=== PATIENT | female | born 1950 | race Caucasian/White ===

== ENCOUNTER 2019-03-13 16:58 | Inpatient (IN) | payer MEDICARE, OTHER ==
[2019-03-13 18:29] LABS: Bacteria/HPF None Seen HPF (None Seen); Hyaline Casts/LPF 0-3 HYALINE CAST LPF (0-3 Hyaline); Pathc Cast-AUWi Flag 0.27 (0-2.49); Squamous Epithelial 0-3 HPF (0-3); WBC/HPF 0-3 HPF (0-3)
[2019-03-13 18:30] LABS: Clarity Clear (Clear)
[2019-03-13 18:31] LABS: Bilirubin Negative (Negative); Blood, Urine Moderate (Negative); Glucose, Urine (Dipstick) Negative (Negative); Leukocyte Negative (Negative); Nitrite Negative (Negative); Protein, Urine (Dipstick) 30 mg/dL (Neg-Trace); Specific Gravity, Urine Greater than 1.060 (1.002-1.036); Urobilinogen 0.2 mg/dL (0.2-1.0)
[2019-03-13 18:34] LABS: Crystals/HPF None Seen HPF (Negative)
[2019-03-13] MEDS ORDERED: Acetaminophen 325 MG TAB ONE ×2 (20:19→20:21)
[2019-03-13] MEDS ORDERED: Nitroglycerin 0.4 MG TAB (25 Tab Bottle) SL PRN (21:16)
[2019-03-13] MEDS ORDERED: Senokot S 8.6-50 MG TAB PO PRN (21:16)
[2019-03-13] MEDS ORDERED: hydrALAZINE 20 MG/ML VIAL SLOW IVP PRN (21:16)
[2019-03-13] MEDS ORDERED: Acetaminophen 325 MG TAB PO PRN (21:16)
[2019-03-13] MEDS ORDERED: Benzonatate 100 MG CAP PO PRN (21:16)
[2019-03-13] MEDS ORDERED: Diabetic Tussin 200 MG/10 ML UDCUP PO PRN (21:16)
[2019-03-13] MEDS ORDERED: Ondansetron PF 4 MG/2 ML Vial IVP PRN ×2 (21:16)
[2019-03-13] MEDS ORDERED: Bisacodyl 5 MG TAB PO PRN (21:16)
[2019-03-13] MEDS ORDERED: Acetaminophen 650 MG Suppository PR PRN (21:16)
[2019-03-13] MEDS ORDERED: cloNIDine 0.1 MG TAB PO PRN (21:16)
[2019-03-13 21:26] VITALS: BMI 26.2
[2019-03-13] MEDS: Sodium Chloride 0.9% 1,000 ML IV SCH (21:49)
[2019-03-13] MEDS: Morphine 2 MG/ML SYRINGE SLOW IVP PRN (21:50)
[2019-03-13] MEDS: metroNIDAZOLE 500 MG in Premix Bag 1 BAG IVPB SCH (21:54)
--- NOTE | 2019-03-13 22:35 | CON ---
DATE OF CONSULTATION: REASON FOR CONSULT: Abdominal pain. HISTORY OF PRESENT ILLNESS: Ms. Barraza is a 68-year-old woman, who presented to a local emergency room yesterday with abdominal pain. She was not felt to have any acute process and was reassured and sent home, but the abdominal pain got worse, so she returned today and a CT was performed, which showed some gas in the mesentery of the sigmoid colon as well as some thickening of the colon concerning for colitis. She was transferred to [place] for further care. She states that she went to a [place] last weekend and was not eating well or having bowel movements due to being in a dormitory type situation. She started taking stool softeners when she got home, but became quite constipated and was having difficulty moving her bowels. On Friday, her pain got worse and on , they got even worse, so she called her doctor and was recommended to continue with laxatives. However, by Friday, it got to the point where she went to the ER. Today, she came back to the ER because she was having low-grade fevers and nausea and vomiting as well as the abdominal pain. Since receiving pain medications and antibiotics, she is feeling better. The pain has been mostly in the left lower quadrant, but extending up through the central abdomen. She has had low-grade fevers up to about 100.5 at home, but no chills. PAST MEDICAL HISTORY: Hypothyroidism, anxiety, and depression. She had some problems with chronic constipation, hypertension, and diabetes, which she states are well controlled. She did have a stroke when she was 46, which was attributed to her estrogen pill, interacting with a sinus medication. ALLERGIES: SHE HAS A SULFA ALLERGY. MEDICATIONS: The patient states she is on Synthroid medication for anxiety and depression and pills for her diabetes. She does not know the names of her medications, however. She did receive Zosyn, morphine, Toradol, and IV fluids in [place]. PAST SURGICAL HISTORY: Includes umbilical hernia repair, hysterectomy. FAMILY HISTORY: Noncontributory. She has no family history of GI malignancy. SOCIAL HISTORY: She does not smoke, drink, or use illicit drugs. LABORATORY DATA: Labs from [place] show a white count of 19, hemoglobin 14.7, hematocrit 45.4, platelets 269. She does have a left shift. Amylase and lipase are normal. Lactate is slightly elevated at 2.8. PHYSICAL EXAMINATION: VITAL SIGNS: The patient is afebrile. Heart rate 77, blood pressure 137/48, 98% saturated on room air. GENERAL: Reveals a healthy-appearing older woman, in no acute distress. She is not flushed or toxic. She is not diaphoretic. No jaundice or icterus. HEENT: Unremarkable. NECK: Supple without lymphadenopathy or thyroid nodules. HEART: Regular in its rate and rhythm without murmurs, rubs, or gallops. LUNGS: Clear to auscultation bilaterally. ABDOMEN: Soft and nondistended with healed surgical incisions. No palpable masses or hernias. She does have tenderness to palpation in the left lower quadrant, but also in the central abdomen and a little in the right greater than left upper quadrant. She does not exhibit rigidity or guarding. She has a little mild rebound. EXTREMITIES: Warm, well perfused without edema. NEURO: No focal findings. She states that her only sequela from her stroke when she was 46 is a little decrease in her balance. IMAGING: CT images are reviewed with our radiologist. She does have a fair amount of air outside the lumen of the sigmoid colon. It does appear to originate from the sigmoid colon and track up through the mesentery. There is no free intraabdominal air. It is well contained within the leaves of the mesentery. There is no drainable fluid collection. There are some inflammatory changes surrounding the sigmoid colon. No evidence of bowel obstruction. ASSESSMENT AND PLAN: Diverticulitis with contained perforation in the mesentery. I have recommended a trial of medical management, which the patient is agreeable to. If her condition worsens, then repeat imaging or surgery may be necessary. Currently, she does not have any firm indication for surgical intervention. Job ID: [id number]
[2019-03-13] MEDS ORDERED: Dextrose 5% in Water 1,000 ML IV PRN (23:09)
[2019-03-13] MEDS ORDERED: HumaLOG 300 UNITS/3 ML VIAL SC PRN ×2 (23:09)
[2019-03-13] MEDS ORDERED: Dextrose 50% Abboject 50 ML SYRINGE SLOW IVP PRN (23:09)
[2019-03-14] MEDS: HYDROcodone/Acetaminophen 5/325 mg Tablet PO PRN ×4 (00:22→18:39)
[2019-03-14] MEDS: Piperacillin/Tazobactam 3.375 GM in Sodium Chloride 0.9% 100 ML IVPB SCH ×5 (00:24→23:44)
--- NOTE | 2019-03-14 01:19 | HP ---
PRIMARY CARE PHYSICIAN: Dr. Sascha Rosario. CHIEF COMPLAINT: Abdominal pain and vomiting. HISTORY OF PRESENTING ILLNESS: Ms. Barraza is a 68-year-old female with past medical history of diverticulitis and prediabetes, who presented to the emergency room with above-mentioned complaint. History is mainly obtained by the patient herself, and electronic medical records have been reviewed. Ms. Barraza reports that she has been retreat for her tenriism for the last few days and ate without any discretion. She has had one episode of diverticulitis few years ago, when she was very sick and had to be hospitalized. She knew that she was supposed to avoid certain foods, but she ate nevertheless. She started to have left lower quadrant abdominal pain about 4 days ago, which got worse. She started to have nausea and threw up today and presented to emergency room in [place], when her symptoms did not get any better. In the emergency room at [place], a CT scan was done, which showed some free air and inflammation in the descending colon and the sigmoid area. She was given pain medications and was transferred to our facility with possible diverticulitis and perforation. Upon presentation to our emergency room, she was hemodynamically stable with a blood pressure of 142/83, temperature 99, and heart rate 85. Her temperature did go up as high as 103.1 in the emergency room. She was given Zosyn at [place] [facility] along with Zofran, Toradol, and saline. Her lab work done at [place] showed elevated lactic acid at and leukocytosis with WBCs of 20,000. Otherwise, labs were rather unremarkable. She was evaluated by Dr. Ellis, who was on-call for General Surgery and after her evaluation, it was found to have been a contained perforation with air tracking along the mesentery, but nothing outside the colon. Plan is to admit to Medicine Team with medical management with surgical consultation. The patient is quite comfortable at this time on my examination in the room. PAST MEDICAL HISTORY: 1. History of diverticulitis. 2. Prediabetes. 3. Hypothyroidism. 4. History of stroke when she was 46, which was attributed to her estrogen pill. PSYCHIATRIC HISTORY: 1. Anxiety. 2. Depression. PAST SURGICAL HISTORY: 1. Umbilical hernia repair. 2. Hysterectomy. FAMILY HISTORY: No history of colonic cancer, diabetes, coronary artery disease, or stroke. SOCIAL HISTORY: She has no history of drug, tobacco, or alcohol abuse. ALLERGIES: INCLUDE, 1. SULFONAMIDE. 2. TRIMETHOPRIM. HOME MEDICATIONS: 1. Metformin 500 mg at bedtime. 2. Provera 2.5 mg daily. 3. Bupropion XL 300 mg daily. 4. Mevacor 20 mg daily. 5. Losartan 100 mg daily. 6. Levothyroxine 175 mcg daily. 7. Estradiol 0.5 mg daily. 8. Lexapro 10 mg daily. CODE STATUS: Full code discussed with the patient. REVIEW OF SYSTEMS: A 14-point review of systems is done. It is negative except for those mentioned in the history and physical. LABORATORY DATA: Labs are not available for me to review from [place], but according to the ER physician, she had leukocytosis with WBCs of 20,000 and elevated lactic acid at . Labs will be repeated in the hospital. Urinalysis shows proteinuria and some ketones with 7 to 10 rbc's, but no leukocyte esterase or bacteria. DIAGNOSTIC DATA: CT scan per report showed diverticulitis with air tracking in the mesentery in the sigmoid colon. There was no drainable fluid collection as per Dr. Ellis. PHYSICAL EXAMINATION: VITAL SIGNS: Most recent vital signs; temperature 99.6, pulse of 89, respirations 18, saturating 92% on room air, and blood pressure 134/60. GENERAL: No acute distress. Awake, alert, and oriented x3. The patient is lying in bed under the bedsheet without any clothes because she has been sweating so much that her hospital gown is soaked through. HEENT: Mucous membrane is moist and pink. No oropharyngeal exudate or erythema. Head is normocephalic and atraumatic. Pupils are equal and reactive to light and accommodation. Extraocular movements are intact. NECK: Supple without any lymphadenopathy, JVD, or bruit. CHEST: Clear to auscultation without any wheezing, rales, or rhonchi. HEART: Rate and rhythm is regular without any murmurs, rubs, or gallops. ABDOMEN: Soft, nondistended. Abdomen is tender to deeper palpation, mainly in the left lower quadrant. Bowel sounds are not very easily heard. No rebound, guarding, or rigidity. It is not acute abdomen. EXTREMITIES: Free of any cyanosis, clubbing, or edema. NEUROLOGICAL: Nonfocal. SKIN: Free of any rashes or bruises. Feels warm and dry to touch. PSYCHIATRIC: Normal affect. IMPRESSION AND PLAN: 1. Acute diverticulitis with contained perforation in the mesentery. The patient will be treated conservatively with bowel rest, normal saline, and empiric IV antibiotics. General Surgery, Dr. Ellis has already evaluated the patient and will be consulted as well. For now, conservative management is recommended by Surgery Team. She is hemodynamically stable. Monitor clinically. 2. Abdominal pain secondary to #1. Continue the plan as #1. We will add the GI prophylaxis with IV Pepcid b.i.d. 3. Fever, most likely secondary to abdominal process with diverticulitis. We will obtain urine culture and blood culture and continue empiric antibiotic for now. 4. History of anxiety and depression. Restart her Wellbutrin XL at 300 mg daily and Lexapro 10 mg daily. 5. Hypothyroidism. Restart Synthroid 175 mcg daily. 6. History of hypertension. We will restart Cozaar 100 mg daily. 7. Diabetes mellitus, non-insulin dependent. We will hold the metformin for now as the patient is n.p.o. and start her insulin sliding scale with Accu-Cheks a.c. and at bedtime. 8. Dyslipidemia. Restart her statin. 9. Deep venous thrombosis and gastrointestinal prophylaxis. DISPOSITION: Ms. Barraza is currently being admitted to the hospital for diverticulitis with contained perforation. She is hemodynamically stable. No evidence of sepsis at this time. Estimated length of stay at this time is at least 2 to 3 midnights. Further management will depend upon her clinical course. Job ID: [id number]
[2019-03-14] MEDS: Morphine 2 MG/ML SYRINGE SLOW IVP PRN ×3 (02:43→19:50)
[2019-03-14] MEDS: metroNIDAZOLE 500 MG in Premix Bag 1 BAG IVPB SCH ×3 (06:00→22:24)
[2019-03-14] MEDS: Levothyroxine 175 MCG TAB PO SCH (06:02)
[2019-03-14 06:27] LABS: #Lymphocytes 1.4 thou/uL (1.20-3.40); #Monocytes 0.8 thou/uL (0.11-0.59); #Neutrophils 15.6 thou/uL (1.40-6.50); %Basophils 0.1 % (0.0-1.0); %Eosinophils 0.1 % (0.0-10.0); %Monocytes 4.4 % (0.0-10.0); %Neutrophils 87.4 % (42.0-75.0); Hemoglobin 13.2 g/dL (12.0-16.0); Mean Corpuscular HGB CONC 32.8 g/dL (32.0-36.0); Mean Corpuscular Hemoglobin 31.3 pg (27.0-31.0); Mean Corpuscular Volume 95.3 fL (78.0-98.0); Mean Platelet Volume 9.9 fL (7.4-10.4); Platelet Count 195 thou/uL (130-400); RBC Distribution Width 12.1 % (11.5-14.5); Red Blood Cell (RBC) Count 4.21 mill/uL (4.20-5.40); White Blood Cell (WBC) Count 17.9 thou/uL (4.8-10.8)
[2019-03-14 06:41] LABS: Anion Gap 12 mmol/L (10-20); BUN (Urea Nitrogen) 9 mg/dL (9.8-20.1); Calc. Creatinine Clearance 86 mL/min (70-130); Calcium 8.1 mg/dL (7.8-10.44); Carbon Dioxide 25 mmol/L (23-31); Chloride 103 mmol/L (98-107); Estimated GFR-MDRD 76; Glucose 125 mg/dL (80-115); Potassium 3.6 mmol/L (3.5-5.1); Sodium 136 mmol/L (136-145)
[2019-03-14] MEDS: Bupropion 150 MG XL TAB PO SCH (08:50)
[2019-03-14] MEDS: Escitalopram Oxalate 10 mg Tablet PO SCH (08:50)
[2019-03-14] MEDS: Enoxaparin Sodium 40 MG/0.4 ML SYRINGE SC SCH (08:51)
[2019-03-14] MEDS: Famotidine/PF 20 mg/2ml Vial SLOW IVP SCH ×2 (08:51→19:50)
[2019-03-14] MEDS: Sodium Chloride 0.9% 1,000 ML IV SCH ×3 (08:54→23:47)
[2019-03-14] MEDS ORDERED: Ciprofloxacin Lactate/D5W 200 MG in Premix Bag 1 BAG IVPB SCH (09:00)
--- NOTE | 2019-03-14 12:34 | PDOC.PN ---
- Subjective Encounter Start Date: 03/14/19 Encounter Start Time: 08:45 Subjective: still has abd pain but gets relief from morphine -: no nausea or vomiting now -: is passing flatus, no bm - Objective Resuscitation Status - Order Detail: 03/14/19 00:03 Resuscitation Status Routine Resuscitation Status: FULL: Full Resuscitation Discussed with: discussed w pt MAR Reviewed: Yes Vital Signs & Weight: Vital Signs (12 hours) Temp Pulse Resp BP Pulse Ox 03/14/19 11:46 98.7 F 77 16 111/63 92 L 03/14/19 08:00 90 L 03/14/19 07:49 98.8 F 83 16 107/53 L 90 L 03/14/19 05:15 98.4 F 86 18 104/56 L 92 L Weight Weight 172 lb 4.8 oz I&O: 03/13/19 03/14/19 03/15/19 06:59 06:59 06:59 Intake Total 949 Balance 949 Result Diagrams: 03/14/19 06:02 03/14/19 06:02 Additional Labs: Accuchecks 03/14/19 03/14/19 11:26 05:15 POC Glucose 130 H 127 H Phys Exam - Physical Examination HEENT: PERRLA, sclera anicteric dry mucosa Neck: no JVD, supple Respiratory: no wheezing, no rales Cardiovascular: RRR, no significant murmur Gastrointestinal: soft, no distention, positive bowel sounds tenderness in suprapubic area and left iliac fossa Musculoskeletal: no edema, pulses present Neurological: non-focal, moves all 4 limbs Psychiatric: normal affect, A&O x 3 Dx/Plan (1) Perforation of sigmoid colon due to diverticulitis Code(s): K57.20 - DVTRCLI OF LG INT W PERFORATION AND ABSCESS W/O BLEEDING Status: Acute Comment: contained perf in the mesentery (2) DM type 2 (diabetes mellitus, type 2) Status: Chronic Qualifiers: Diabetes mellitus terminal system operator insulin use: without assisted use Diabetes mellitus complication status: with unspecified complications Qualified Code(s) : E11.8 - Type 2 diabetes mellitus with unspecified complications (3) Hypothyroidism Code(s): E03.9 - HYPOTHYROIDISM, UNSPECIFIED Status: Chronic (4) HTN (hypertension) Code(s): I10 - ESSENTIAL (PRIMARY) HYPERTENSION Status: Chronic Qualifiers: Hypertension type: essential hypertension Qualified Code(s): I10 - Essential (primary) hypertension (5) Dyslipidemia Code(s): E78.5 - HYPERLIPIDEMIA, UNSPECIFIED Status: Chronic (6) Mood disorder Code(s): F39 - UNSPECIFIED MOOD [AFFECTIVE] DISORDER Status: Chronic - Plan is on zosyn and flagyl, iv fluids, npo -: hold all antihtn meds -: continue welbutryn and synthroid for now -: morphine prn, appreciate 's help -: may switch fluids to lactated ringers in am * . Review of Systems - Medications/Allergies Allergies/Adverse Reactions: Allergies Allergy/AdvReac Type Severity Reaction Status Date / Time Sulfa (Sulfonamide Allergy Severe Verified 03/13/19 21:23 Antibiotics) sulfamethoxazole Allergy Severe Verified 03/13/19 21:23 [From Bactrim] trimethoprim [From Bactrim] Allergy Severe Verified 03/13/19 21:23 Medications: Current Medications Acetaminophen (Tylenol) 650 mg OH Q4H PRN PRN Reason: Headache/Fever/Mild Pain (1-3) Acetaminophen (Tylenol) 650 mg PO Q4H PRN PRN Reason: Headache/Fever/Mild Pain (1-3) Hydrocodone Bitart/Acetaminophen ([place] 5/325) 1 tab PO Q4H PRN PRN Reason: Moderate Pain (4-6) Last Admin: 03/14/19 05:09 Dose: 1 tab Hydrocodone Bitart/Acetaminophen ([place] 5/325) 2 tab PO Q4H PRN PRN Reason: Severe Pain (7-10) Last Admin: 03/14/19 08:47 Dose: 2 tab Benzonatate (Tessalon) 100 mg PO Q6H PRN PRN Reason: Cough Bisacodyl (Dulcolax) 10 mg PO DAILYPRN PRN PRN Reason: Constipation Bupropion HCl (Wellbutrin Xl) 300 mg PO DAILY YUE Last Admin: 03/14/19 08:50 Dose: 300 mg Calcium Carbonate (Tums) 1,000 mg PO Q4H PRN PRN Reason: Heartburn or Indigestion Clonidine (Catapres) 0.1 mg PO Q4H PRN PRN Reason: SBP >160 ____ Dextrose/Water (Dextrose 50%) 25 gm SLOW IVP PRN PRN PRN Reason: Hypoglycemia Enoxaparin Sodium (Lovenox) 40 mg SC 0900 [facility] Last Admin: 03/14/19 08:51 Dose: 40 mg Escitalopram Oxalate (Lexapro) 10 mg PO DAILY [facility] Last Admin: 03/14/19 08:50 Dose: 10 mg Famotidine (Pepcid) 20 mg SLOW IVP Q12HR [facility] Last Admin: 03/14/19 08:51 Dose: 20 mg Glucagon (Glucagon) 1 mg IM PRN PRN PRN Reason: Hypoglycemia Guaifenesin (Robitussin Sf) 200 mg PO Q4H PRN PRN Reason: Cough Hydralazine HCl (Apresoline) 10 mg SLOW IVP Q4H PRN PRN Reason: SBP > 180 and HR < 70 Metronidazole 500 mg/ Device 100 mls @ 100 mls/hr IVPB Q8HR [facility] Last Admin: 03/14/19 06:00 Dose: 100 mls Sodium Chloride (Normal Saline 0.9%) 1,000 mls @ 100 mls/hr IV .Q10H [facility] Last Admin: 03/14/19 08:54 Dose: 1,000 mls Piperacillin Sod/Tazobactam (Sod 3.375 gm/ Sodium Chloride) 100 mls @ 200 mls/ hr IVPB Q6HR [facility] Last Admin: 03/14/19 12:19 Dose: 100 mls Dextrose/Water (D5w) 1,000 mls @ 0 mls/hr IV .Q0M PRN PRN Reason: Hypoglycemia Insulin Human Lispro (Humalog) 0 units SC .MODERATE SLIDING SC PRN PRN Reason: Moderate Correctional Scale Insulin Human Lispro (Humalog) 0 units SC .BEDTIME SLIDING SC PRN PRN Reason: Bedtime Correctional Scale Levothyroxine Sodium (Synthroid) 175 mcg PO 0600 [facility] Last Admin: 03/14/19 06:02 Dose: Not Given Losartan Potassium (Cozaar) 100 mg PO QPM [facility] Morphine Sulfate (Morphine) 2 mg SLOW IVP Q4H PRN PRN Reason: severe pain Last Admin: 03/14/19 10:22 Dose: 2 mg Nitroglycerin (Nitrostat) 0.4 mg SL Q5MIN PRN PRN Reason: Chest Pain Ondansetron HCl (Zofran) 4 mg IVP Q6H PRN PRN Reason: Nausea/Vomiting Ondansetron HCl (Zofran) 4 mg IVP Q6H PRN PRN Reason: Nausea/Vomiting Senna/Docusate Sodium (Senokot S) 2 tab PO BID PRN PRN Reason: Constipation Simvastatin (Zocor) 10 mg PO HS YUE Sodium Chloride (Flush - Normal Saline) 10 ml IVF Q12HR YUE Last Admin: 03/14/19 09:46 Dose: Not Given Sodium Chloride (Flush - Normal Saline) 10 ml IVF PRN PRN PRN Reason: Saline Flush Last Admin: 03/13/19 21:50 Dose: 10 ml
--- NOTE | 2019-03-14 15:40 | PDOC.GSPN ---
Surgery Progress Note: Subj - Subjective Narrative: Patient states that the morphine helps with the pain but that overall she feels about the same as yesterday. She denies any nausea or vomiting. She is passing gas. Abdomen is still slightly distended and tender in the left lower quadrant and centrally. White count is down a little bit to 17. She has not had any fevers overnight. Assessment/plan: Diverticulitis with contained perforation. Slight improvements on IV antibiotics. Continue current management and monitor closely. Surgery Progress Note: Obj - Vital signs Vital signs: Vital Signs - Most Recent Temp Pulse Resp BP Pulse Ox 98.7 F 77 16 111/63 92 L 03/14/19 11:46 03/14/19 11:46 03/14/19 11:46 03/14/19 11:46 03/14/19 11:46 Surgery Progress Note: Results - Labs Result Diagrams: 03/14/19 06:02 03/14/19 06:02 Lab results: Laboratory Results - last 24 hr 03/14/19 03/14/19 03/14/19 05:15 06:02 06:02 WBC 17.9 H RBC 4.21 Hgb 13.2 Hct 40.1 MCV 95.3 MCH 31.3 H MCHC 32.8 RDW 12.1 Plt Count 195 MPV 9.9 Neutrophils % 87.4 H Lymphocytes % 8.0 L Monocytes % 4.4 Eosinophils % 0.1 Basophils % 0.1 Neutrophils # 15.6 H Lymphocytes # 1.4 Monocytes # 0.8 H Eosinophils # 0.0 Basophils # 0.0 Sodium 136 Potassium 3.6 Chloride 103 Carbon Dioxide 25 Anion Gap 12 BUN 9 L Creatinine 0.75 Estimated GFR (MDRD) 76 Glucose 125 H POC Glucose 127 H Calcium 8.1 03/14/19 11:26 WBC RBC Hgb Hct MCV MCH MCHC RDW Plt Count MPV Neutrophils % Lymphocytes % Monocytes % Eosinophils % Basophils % Neutrophils # Lymphocytes # Monocytes # Eosinophils # Basophils # Sodium Potassium Chloride Carbon Dioxide Anion Gap BUN Creatinine Estimated GFR (MDRD) Glucose POC Glucose 130 H Calcium
[2019-03-14] MEDS ORDERED: Losartan 25 MG TAB PO SCH (21:00)
[2019-03-14] MEDS ORDERED: Simvastatin 5 MG TAB PO SCH (21:00)
[2019-03-15] MEDS: metroNIDAZOLE 500 MG in Premix Bag 1 BAG IVPB SCH ×3 (05:17→20:44)
[2019-03-15] MEDS: Piperacillin/Tazobactam 3.375 GM in Sodium Chloride 0.9% 100 ML IVPB SCH ×3 (05:18→17:38)
[2019-03-15] MEDS: Levothyroxine 175 MCG TAB PO SCH (05:23)
[2019-03-15] MEDS: Morphine 2 MG/ML SYRINGE SLOW IVP PRN ×3 (05:23→20:40)
[2019-03-15] MEDS: Famotidine/PF 20 mg/2ml Vial SLOW IVP SCH ×2 (08:12→20:46)
[2019-03-15] MEDS: Bupropion 150 MG XL TAB PO SCH (08:12)
[2019-03-15] MEDS: Enoxaparin Sodium 40 MG/0.4 ML SYRINGE SC SCH (08:13)
[2019-03-15] MEDS: Escitalopram Oxalate 10 mg Tablet PO SCH (08:13)
[2019-03-15] MEDS: Calcium Carbonate 500 MG ChewTAB PO PRN (09:28)
[2019-03-15 11:39] LABS: #Lymphocytes 0.9 thou/uL (1.20-3.40); #Monocytes 0.9 thou/uL (0.11-0.59); #Neutrophils 16.2 thou/uL (1.40-6.50); %Basophils 0.2 % (0.0-1.0); %Eosinophils 0.2 % (0.0-10.0); %Lymphocytes 4.8 % (21.0-51.0); %Monocytes 4.9 % (0.0-10.0); Hemoglobin 12.1 g/dL (12.0-16.0); Mean Corpuscular HGB CONC 32.4 g/dL (32.0-36.0); Mean Corpuscular Hemoglobin 31.2 pg (27.0-31.0); Mean Corpuscular Volume 96.2 fL (78.0-98.0); Mean Platelet Volume 10.2 fL (7.4-10.4); Platelet Count 197 thou/uL (130-400); RBC Distribution Width 12.4 % (11.5-14.5); Red Blood Cell (RBC) Count 3.89 mill/uL (4.20-5.40)
[2019-03-15 12:43] LABS: Anion Gap 11 mmol/L (10-20); BUN (Urea Nitrogen) 14 mg/dL (9.8-20.1); Calc. Creatinine Clearance 95 mL/min (70-130); Calcium 8.2 mg/dL (7.8-10.44); Carbon Dioxide 24 mmol/L (23-31); Chloride 110 mmol/L (98-107); Estimated GFR-MDRD 86; Glucose 122 mg/dL (80-115); Potassium 3.2 mmol/L (3.5-5.1); Sodium 142 mmol/L (136-145)
[2019-03-15] MEDS: Sodium Chloride 0.9% 1,000 ML IV SCH ×2 (14:35→20:46)
--- NOTE | 2019-03-15 14:55 | PDOC.GSPN ---
Surgery Progress Note: Subj - Subjective Narrative: Patient is feeling better today. Her pain has improved and she is passing gas. She denies any nausea or vomiting and does not feel bloated. She is tolerating ice chips. No fever. Vital signs okay. White count is still elevated. Abdominal exam is improved. She is much less tender to palpation in the left lower quadrant and central abdomen. Assessment/plan: Symptomatically improved with diverticulitis with contained perforation, although white count has not normalized. Continue current management. If white count remains elevated consider repeat CT. Clear Liquid diet. Surgery Progress Note: Obj - Vital signs Vital signs: Vital Signs - Most Recent Temp Pulse Resp BP Pulse Ox 98.3 F 78 20 126/69 91 L 03/15/19 03:31 03/15/19 03:31 03/15/19 03:31 03/15/19 03:03/15/19 08:00 Surgery Progress Note: Results - Labs Result Diagrams: 03/15/19 11:25 03/15/19 12:10 Lab results: Laboratory Results - last 24 hr 03/15/19 03/15/19 03/15/19 05:52 11:25 11:47 WBC 18.0 H RBC 3.89 L Hgb 12.1 Hct 37.4 MCV 96.2 MCH 31.2 H MCHC 32.4 RDW 12.4 Plt Count 197 MPV 10.2 Neutrophils % 90.0 H Lymphocytes % 4.8 L Monocytes % 4.9 Eosinophils % 0.2 Basophils % 0.2 Neutrophils # 16.2 H Lymphocytes # 0.9 L Monocytes # 0.9 H Eosinophils # 0.0 Basophils # 0.0 Sodium Potassium Chloride Carbon Dioxide Anion Gap BUN Creatinine Estimated GFR (MDRD) Glucose POC Glucose 123 H 109 Calcium 03/15/19 12:10 WBC RBC Hgb Hct MCV MCH MCHC RDW Plt Count MPV Neutrophils % Lymphocytes % Monocytes % Eosinophils % Basophils % Neutrophils # Lymphocytes # Monocytes # Eosinophils # Basophils # Sodium 142 Potassium 3.2 L Chloride 110 H Carbon Dioxide 24 Anion Gap 11 BUN 14 Creatinine 0.68 Estimated GFR (MDRD) 86 Glucose 122 H POC Glucose Calcium 8.2
--- NOTE | 2019-03-15 17:10 | PDOC.PN ---
- Subjective Encounter Start Date: 03/15/19 Encounter Start Time: 12:30 Subjective: c/o abd pain but gets relief with meds -: no nausea or bm yet -: son at bedside - Objective Resuscitation Status - Order Detail: 03/14/19 00:03 Resuscitation Status Routine Resuscitation Status: FULL: Full Resuscitation Discussed with: discussed w pt MAR Reviewed: Yes Vital Signs & Weight: Vital Signs (12 hours) Temp Pulse Resp BP Pulse Ox 03/15/19 12:00 97.7 F 80 16 133/69 92 L 03/15/19 08:00 98.4 F 79 16 123/65 91 L Weight Admit Weight 172 lb 4.8 oz Weight 172 lb 4.8 oz I&O: 03/14/19 03/15/19 03/16/19 06:59 06:59 06:59 Intake Total 949 1200 Balance 949 1200 Result Diagrams: 03/15/19 11:25 03/15/19 12:10 Additional Labs: Accuchecks 03/15/19 03/15/19 03/14/19 11:47 05:52 20:25 POC Glucose 109 123 H 127 H 03/14/19 16:49 POC Glucose 116 H Phys Exam - Physical Examination HEENT: PERRLA, moist MMs Neck: no JVD, supple Respiratory: no wheezing, no rales Cardiovascular: RRR, no significant murmur Gastrointestinal: soft, no distention, positive bowel sounds tenderness in rlq, no rigidity Musculoskeletal: no edema, pulses present Neurological: non-focal, moves all 4 limbs Psychiatric: normal affect, A&O x 3 Dx/Plan (1) Perforation of sigmoid colon due to diverticulitis Code(s): K57.20 - DVTRCLI OF LG INT W PERFORATION AND ABSCESS W/O BLEEDING Status: Acute Comment: contained perf in the mesentery (2) DM type 2 (diabetes mellitus, type 2) Status: Chronic Qualifiers: Diabetes mellitus life skills instructor insulin use: without senior care use Diabetes mellitus complication status: with unspecified complications Qualified Code(s) : E11.8 - Type 2 diabetes mellitus with unspecified complications (3) Hypothyroidism Code(s): E03.9 - HYPOTHYROIDISM, UNSPECIFIED Status: Chronic Qualifiers: Hypothyroidism type: unspecified Qualified Code(s): E03.9 - Hypothyroidism , unspecified (4) HTN (hypertension) Code(s): I10 - ESSENTIAL (PRIMARY) HYPERTENSION Status: Chronic Qualifiers: Hypertension type: essential hypertension Qualified Code(s): I10 - Essential (primary) hypertension (5) Dyslipidemia Code(s): E78.5 - HYPERLIPIDEMIA, UNSPECIFIED Status: Chronic (6) Mood disorder Code(s): F39 - UNSPECIFIED MOOD [AFFECTIVE] DISORDER Status: Chronic - Plan hemostable -: wbc still elevated, clinically no signs of worsoning -: suggest CT abd in am if ok with gen surgery -: her pain has moved from llq to rlq, is tolerating ice chips -: d/w pt and son at bedside. Continue zosyn, flagyl * . Review of Systems - Medications/Allergies Allergies/Adverse Reactions: Allergies Allergy/AdvReac Type Severity Reaction Status Date / Time Sulfa (Sulfonamide Allergy Severe Verified 03/13/19 21:23 Antibiotics) sulfamethoxazole Allergy Severe Verified 03/13/19 21:23 [From Bactrim] trimethoprim [From Bactrim] Allergy Severe Verified 03/13/19 21:23 Medications: Current Medications Acetaminophen (Tylenol) 650 mg [place] Q4H PRN PRN Reason: Headache/Fever/Mild Pain (1-3) Acetaminophen (Tylenol) 650 mg PO Q4H PRN PRN Reason: Headache/Fever/Mild Pain (1-3) Hydrocodone Bitart/Acetaminophen ([place] 5/325) 1 tab PO Q4H PRN PRN Reason: Moderate Pain (4-6) Last Admin: 03/14/19 05:09 Dose: 1 tab Hydrocodone Bitart/Acetaminophen ([place] 5/325) 2 tab PO Q4H PRN PRN Reason: Severe Pain (7-10) Last Admin: 03/14/19 18:39 Dose: 2 tab Benzonatate (Tessalon) 100 mg PO Q6H PRN PRN Reason: Cough Bisacodyl (Dulcolax) 10 mg PO DAILYPRN PRN PRN Reason: Constipation Bupropion HCl (Wellbutrin Xl) 300 mg PO DAILY YUE Last Admin: 03/15/19 08:12 Dose: 300 mg Calcium Carbonate (Tums) 1,000 mg PO Q4H PRN PRN Reason: Heartburn or Indigestion Last Admin: 03/15/19 09:28 Dose: 1,000 mg Clonidine (Catapres) 0.1 mg PO Q4H PRN PRN Reason: SBP >160 ____ Dextrose/Water (Dextrose 50%) 25 gm SLOW IVP PRN PRN PRN Reason: Hypoglycemia Enoxaparin Sodium (Lovenox) 40 mg SC 0900 [facility] Last Admin: 03/15/19 08:13 Dose: 40 mg Escitalopram Oxalate (Lexapro) 10 mg PO DAILY [facility] Last Admin: 03/15/19 08:13 Dose: 10 mg Famotidine (Pepcid) 20 mg SLOW IVP Q12HR [facility] Last Admin: 03/15/19 08:12 Dose: 20 mg Glucagon (Glucagon) 1 mg IM PRN PRN PRN Reason: Hypoglycemia Guaifenesin (Robitussin Sf) 200 mg PO Q4H PRN PRN Reason: Cough Hydralazine HCl (Apresoline) 10 mg SLOW IVP Q4H PRN PRN Reason: SBP > 180 and HR < 70 Metronidazole 500 mg/ Device 100 mls @ 100 mls/hr IVPB Q8HR [facility] Last Admin: 03/15/19 14:35 Dose: 100 mls Sodium Chloride (Normal Saline 0.9%) 1,000 mls @ 100 mls/hr IV .Q10H [facility] Last Admin: 03/15/19 14:35 Dose: 1,000 mls Piperacillin Sod/Tazobactam (Sod 3.375 gm/ Sodium Chloride) 100 mls @ 200 mls/ hr IVPB Q6HR [facility] Last Admin: 03/15/19 11:10 Dose: 100 mls Dextrose/Water (D5w) 1,000 mls @ 0 mls/hr IV .Q0M PRN PRN Reason: Hypoglycemia Insulin Human Lispro (Humalog) 0 units SC .MODERATE SLIDING SC PRN PRN Reason: Moderate Correctional Scale Insulin Human Lispro (Humalog) 0 units SC .BEDTIME SLIDING SC PRN PRN Reason: Bedtime Correctional Scale Levothyroxine Sodium (Synthroid) 175 mcg PO 0600 [facility] Last Admin: 03/15/19 05:23 Dose: 175 mcg Morphine Sulfate (Morphine) 2 mg SLOW IVP Q4H PRN PRN Reason: severe pain Last Admin: 03/15/19 11:07 Dose: 2 mg Nitroglycerin (Nitrostat) 0.4 mg SL Q5MIN PRN PRN Reason: Chest Pain Ondansetron HCl (Zofran) 4 mg IVP Q6H PRN PRN Reason: Nausea/Vomiting Ondansetron HCl (Zofran) 4 mg IVP Q6H PRN PRN Reason: Nausea/Vomiting Senna/Docusate Sodium (Senokot S) 2 tab PO BID PRN PRN Reason: Constipation Sodium Chloride (Flush - Normal Saline) 10 ml IVF Q12HR [facility] Last Admin: 03/15/19 08:13 Dose: Not Given Sodium Chloride (Flush - Normal Saline) 10 ml IVF PRN PRN PRN Reason: Saline Flush Last Admin: 03/13/19 21:50 Dose: 10 ml
[2019-03-16] MEDS: Piperacillin/Tazobactam 3.375 GM in Sodium Chloride 0.9% 100 ML IVPB SCH ×5 (00:22→23:37)
[2019-03-16] MEDS: Morphine 2 MG/ML SYRINGE SLOW IVP PRN ×4 (00:44→21:02)
[2019-03-16] MEDS: Levothyroxine 175 MCG TAB PO SCH (05:25)
[2019-03-16] MEDS: metroNIDAZOLE 500 MG in Premix Bag 1 BAG IVPB SCH ×3 (05:26→21:03)
[2019-03-16 06:37] LABS: #Lymphocytes 1.3 thou/uL (1.20-3.40); #Monocytes 0.8 thou/uL (0.11-0.59); #Neutrophils 12.5 thou/uL (1.40-6.50); %Basophils 0.2 % (0.0-1.0); %Eosinophils 0.1 % (0.0-10.0); %Lymphocytes 8.6 % (21.0-51.0); %Monocytes 5.7 % (0.0-10.0); %Neutrophils 85.4 % (42.0-75.0); Hemoglobin 12.3 g/dL (12.0-16.0); Mean Corpuscular HGB CONC 32.7 g/dL (32.0-36.0); Mean Corpuscular Hemoglobin 31.5 pg (27.0-31.0); Mean Corpuscular Volume 96.2 fL (78.0-98.0); Mean Platelet Volume 10.3 fL (7.4-10.4); Platelet Count 232 thou/uL (130-400); RBC Distribution Width 12.4 % (11.5-14.5); Red Blood Cell (RBC) Count 3.92 mill/uL (4.20-5.40); White Blood Cell (WBC) Count 14.6 thou/uL (4.8-10.8)
[2019-03-16 06:54] LABS: Anion Gap 10 mmol/L (10-20); BUN (Urea Nitrogen) 8 mg/dL (9.8-20.1); Calc. Creatinine Clearance 111 mL/min (70-130); Calcium 7.9 mg/dL (7.8-10.44); Carbon Dioxide 24 mmol/L (23-31); Chloride 108 mmol/L (98-107); Estimated GFR-MDRD Greater than 90; Glucose 128 mg/dL (80-115); Potassium 3.1 mmol/L (3.5-5.1); Sodium 139 mmol/L (136-145)
[2019-03-16] MEDS: Escitalopram Oxalate 10 mg Tablet PO SCH (08:44)
[2019-03-16] MEDS: HYDROcodone/Acetaminophen 5/325 mg Tablet PO PRN ×2 (08:44→23:38)
[2019-03-16] MEDS: Bupropion 150 MG XL TAB PO SCH (08:44)
[2019-03-16] MEDS: Enoxaparin Sodium 40 MG/0.4 ML SYRINGE SC SCH (08:45)
[2019-03-16] MEDS: Sodium Chloride 0.9% 1,000 ML IV SCH ×2 (08:45→19:41)
[2019-03-16] MEDS: Famotidine/PF 20 mg/2ml Vial SLOW IVP SCH ×2 (08:45→19:42)
[2019-03-16] MEDS ORDERED: ISOVUE-370 76%-LOCM 1 ML ONE (13:05)
[2019-03-16] MEDS ORDERED: Iopamidol 370 76% 50 ML VIAL FS ONE (13:05)
--- NOTE | 2019-03-16 15:45 | PDOC.PN ---
- Subjective Encounter Start Date: 03/16/19 Encounter Start Time: 08:45 Subjective: abd pain is better, no nausea -: is passing flatus, no bm - Objective Resuscitation Status - Order Detail: 03/14/19 00:03 Resuscitation Status Routine Resuscitation Status: FULL: Full Resuscitation Discussed with: discussed w pt MAR Reviewed: Yes Vital Signs & Weight: Vital Signs (12 hours) Temp Pulse Resp BP BP Pulse Ox 03/16/19 08:00 98.3 F 84 20 132/71 94 L 03/16/19 04:00 98.9 F 85 20 125/72 93 L Weight Admit Weight 172 lb 4.8 oz Weight 172 lb 4.8 oz I&O: 03/15/19 03/16/19 03/17/19 06:59 06:59 06:59 Intake Total 1200 1450 480 Balance 1200 1450 480 Result Diagrams: 03/16/19 05:42 03/16/19 05:42 Additional Labs: Accuchecks 03/16/19 03/16/19 03/15/19 11:10 04:38 20:15 POC Glucose 123 H 147 H 160 H 03/15/19 17:07 POC Glucose 180 H Phys Exam - Physical Examination HEENT: PERRLA, moist MMs Neck: no JVD, supple Respiratory: no wheezing, no rales Cardiovascular: RRR, no significant murmur Gastrointestinal: soft, no distention, positive bowel sounds Musculoskeletal: no edema, pulses present Neurological: non-focal, moves all 4 limbs Psychiatric: normal affect, A&O x 3 Dx/Plan (1) Perforation of sigmoid colon due to diverticulitis Code(s): K57.20 - DVTRCLI OF LG INT W PERFORATION AND ABSCESS W/O BLEEDING Status: Acute Comment: contained perf in the mesentery (2) DM type 2 (diabetes mellitus, type 2) Status: Chronic Qualifiers: Diabetes mellitus pecan grower insulin use: without pecan grower use Diabetes mellitus complication status: with unspecified complications Qualified Code(s) : E11.8 - Type 2 diabetes mellitus with unspecified complications (3) Hypothyroidism Code(s): E03.9 - HYPOTHYROIDISM, UNSPECIFIED Status: Chronic Qualifiers: Hypothyroidism type: unspecified Qualified Code(s): E03.9 - Hypothyroidism , unspecified (4) HTN (hypertension) Code(s): I10 - ESSENTIAL (PRIMARY) HYPERTENSION Status: Chronic Qualifiers: Hypertension type: essential hypertension Qualified Code(s): I10 - Essential (primary) hypertension (5) Dyslipidemia Code(s): E78.5 - HYPERLIPIDEMIA, UNSPECIFIED Status: Chronic (6) Mood disorder Code(s): F39 - UNSPECIFIED MOOD [AFFECTIVE] DISORDER Status: Chronic - Plan pt wants a repeat CT abd to see if she has improved/decompensated -: clinically is better, wbc is down, morphine is giving good relief -: is on zosyn and flaygl -: on liq diet -: replace potassium * . Review of Systems - Medications/Allergies Allergies/Adverse Reactions: Allergies Allergy/AdvReac Type Severity Reaction Status Date / Time Sulfa (Sulfonamide Allergy Severe Verified 03/13/19 21:23 Antibiotics) sulfamethoxazole Allergy Severe Verified 03/13/19 21:23 [From Bactrim] trimethoprim [From Bactrim] Allergy Severe Verified 03/13/19 21:23 Medications: Current Medications Acetaminophen (Tylenol) 650 mg [place] Q4H PRN PRN Reason: Headache/Fever/Mild Pain (1-3) Acetaminophen (Tylenol) 650 mg PO Q4H PRN PRN Reason: Headache/Fever/Mild Pain (1-3) Last Admin: 03/15/19 18:43 Dose: 650 mg Hydrocodone Bitart/Acetaminophen ([place] 5/325) 1 tab PO Q4H PRN PRN Reason: Moderate Pain (4-6) Last Admin: 03/16/19 08:44 Dose: 1 tab Hydrocodone Bitart/Acetaminophen ([place] 5/325) 2 tab PO Q4H PRN PRN Reason: Severe Pain (7-10) Last Admin: 03/14/19 18:39 Dose: 2 tab Benzonatate (Tessalon) 100 mg PO Q6H PRN PRN Reason: Cough Bisacodyl (Dulcolax) 10 mg PO DAILYPRN PRN PRN Reason: Constipation Last Admin: 03/15/19 17:44 Dose: 10 mg Bupropion HCl (Wellbutrin Xl) 300 mg PO DAILY YUE Last Admin: 03/16/19 08:44 Dose: 300 mg Calcium Carbonate (Tums) 1,000 mg PO Q4H PRN PRN Reason: Heartburn or Indigestion Last Admin: 03/15/19 09:28 Dose: 1,000 mg Clonidine (Catapres) 0.1 mg PO Q4H PRN PRN Reason: SBP >160 ____ Dextrose/Water (Dextrose 50%) 25 gm SLOW IVP PRN PRN PRN Reason: Hypoglycemia Enoxaparin Sodium (Lovenox) 40 mg SC 0900 [facility] Last Admin: 03/16/19 08:45 Dose: 40 mg Escitalopram Oxalate (Lexapro) 10 mg PO DAILY [facility] Last Admin: 03/16/19 08:44 Dose: 10 mg Famotidine (Pepcid) 20 mg SLOW IVP Q12HR [facility] Last Admin: 03/16/19 08:45 Dose: 20 mg Glucagon (Glucagon) 1 mg IM PRN PRN PRN Reason: Hypoglycemia Guaifenesin (Robitussin Sf) 200 mg PO Q4H PRN PRN Reason: Cough Hydralazine HCl (Apresoline) 10 mg SLOW IVP Q4H PRN PRN Reason: SBP > 180 and HR < 70 Metronidazole 500 mg/ Device 100 mls @ 100 mls/hr IVPB Q8HR [facility] Last Admin: 03/16/19 13:48 Dose: 100 mls Sodium Chloride (Normal Saline 0.9%) 1,000 mls @ 100 mls/hr IV .Q10H [facility] Last Admin: 03/16/19 08:45 Dose: Not Given Piperacillin Sod/Tazobactam (Sod 3.375 gm/ Sodium Chloride) 100 mls @ 200 mls/ hr IVPB Q6HR [facility] Last Admin: 03/16/19 11:39 Dose: 100 mls Dextrose/Water (D5w) 1,000 mls @ 0 mls/hr IV .Q0M PRN PRN Reason: Hypoglycemia Insulin Human Lispro (Humalog) 0 units SC .MODERATE SLIDING SC PRN PRN Reason: Moderate Correctional Scale Insulin Human Lispro (Humalog) 0 units SC .BEDTIME SLIDING SC PRN PRN Reason: Bedtime Correctional Scale Levothyroxine Sodium (Synthroid) 175 mcg PO 0600 [facility] Last Admin: 03/16/19 05:25 Dose: 175 mcg Morphine Sulfate (Morphine) 2 mg SLOW IVP Q4H PRN PRN Reason: severe pain Last Admin: 03/16/19 05:30 Dose: 2 mg Nitroglycerin (Nitrostat) 0.4 mg SL Q5MIN PRN PRN Reason: Chest Pain Ondansetron HCl (Zofran) 4 mg IVP Q6H PRN PRN Reason: Nausea/Vomiting Ondansetron HCl (Zofran) 4 mg IVP Q6H PRN PRN Reason: Nausea/Vomiting Potassium Chloride (K-Dur) 40 meq PO BID- YUE Senna/Docusate Sodium (Senokot S) 2 tab PO BID PRN PRN Reason: Constipation Last Admin: 03/16/19 13:52 Dose: 2 tab Sodium Chloride (Flush - Normal Saline) 10 ml IVF Q12HR YUE Last Admin: 03/16/19 08:45 Dose: Not Given Sodium Chloride (Flush - Normal Saline) 10 ml IVF PRN PRN PRN Reason: Saline Flush Last Admin: 03/13/19 21:50 Dose: 10 ml
--- NOTE | 2019-03-16 16:05 | PDOC.GSPN ---
Surgery Progress Note: Subj - Subjective Narrative: Patient states that she feels much better today. She drank a lot of juice rather quickly yesterday and that maybe abdominal pain worse, but then it eased off and today she is not having any pain. She denies any nausea or vomiting. She hasn't had any bowel movements however. She had a low-grade fever to 100 degrees Fahrenheit but other vital signs are stable. White count has come down somewhat. She is draw furnace tender to palpation in the left lower quadrant and central abdomen and seems a little more distended than yesterday. Assessment/plan: Diverticulitis with contained perforation, clinically improved. Her medicine doctor has ordered a CT and I'll await these results. However, she is feeling better. Surgery Progress Note: Obj - Vital signs Vital signs: Vital Signs - Most Recent Temp Pulse Resp BP Pulse Ox 98.3 F 84 20 132/71 94 L 03/16/19 08:00 03/16/19 08:00 03/16/19 08:00 03/16/19 08:00 03/16/19 08:00 Surgery Progress Note: Results - Labs Result Diagrams: 03/16/19 05:42 03/16/19 05:42 Lab results: Laboratory Results - last 24 hr 03/16/19 03/16/19 03/16/19 04:38 05:42 05:42 WBC 14.6 H RBC 3.92 L Hgb 12.3 Hct 37.7 MCV 96.2 MCH 31.5 H MCHC 32.7 RDW 12.4 Plt Count 232 MPV 10.3 Neutrophils % 85.4 H Lymphocytes % 8.6 L Monocytes % 5.7 Eosinophils % 0.1 Basophils % 0.2 Neutrophils # 12.5 H Lymphocytes # 1.3 Monocytes # 0.8 H Eosinophils # 0.0 Basophils # 0.0 Sodium 139 Potassium 3.1 L Chloride 108 H Carbon Dioxide 24 Anion Gap 10 BUN 8 L Creatinine 0.58 L Estimated GFR (MDRD) Greater than 90 Glucose 128 H POC Glucose 147 H Calcium 7.9 03/16/19 11:10 WBC RBC Hgb Hct MCV MCH MCHC RDW Plt Count MPV Neutrophils % Lymphocytes % Monocytes % Eosinophils % Basophils % Neutrophils # Lymphocytes # Monocytes # Eosinophils # Basophils # Sodium Potassium Chloride Carbon Dioxide Anion Gap BUN Creatinine Estimated GFR (MDRD) Glucose POC Glucose 123 H Calcium
[2019-03-16] MEDS: Potassium Chloride 20 MEQ TAB PO SCH (16:53)
--- NOTE | 2019-03-16 18:54 | CT ---
CT Abdomen Pelvis W Con History: [Sigmoid diverticulitis with perforation] Comparison: CT abdomen and pelvis March 13, 2019 Findings: The right pleural space is small volume fluid. No significant pericardial effusion. Pneumoperitoneum has increased. Uncontained perforation sigmoid colon. Perforation appears to occur o n the mesenteric side of the sigmoid colon best seen on axial image [id number] coronal image 72. Mild free fluid along the sigmoid mesentery is increased. The intraperitoneal free fluid is mildly increas ed. Layering sludge in the gallbladder. The spleen pancreas both adrenal glands are unremarkable. No hydr onephrosis. There is no acute osseous abnormality. Impression: Worsening free intraperitoneal gas and fluid from the uncontained sigmoid perforation as described best seen on axial image [id number] and coronal image 72.
[2019-03-17] MEDS: Sodium Chloride 0.9% 1,000 ML IV SCH (01:48)
[2019-03-17] MEDS: Morphine 2 MG/ML SYRINGE SLOW IVP PRN ×2 (01:54→06:17)
[2019-03-17] MEDS: Levothyroxine 175 MCG TAB PO SCH (05:33)
[2019-03-17] MEDS: metroNIDAZOLE 500 MG in Premix Bag 1 BAG IVPB SCH ×3 (05:33→21:12)
[2019-03-17] MEDS: Piperacillin/Tazobactam 3.375 GM in Sodium Chloride 0.9% 100 ML IVPB SCH ×3 (05:34→19:56)
[2019-03-17] MEDS: Calcium Carbonate 500 MG ChewTAB PO PRN (06:18)
[2019-03-17] MEDS: HYDROcodone/Acetaminophen 5/325 mg Tablet PO PRN (08:20)
[2019-03-17] MEDS: Famotidine/PF 20 mg/2ml Vial SLOW IVP SCH ×3 (08:20→21:55)
[2019-03-17] MEDS: Bupropion 150 MG XL TAB PO SCH (08:20)
[2019-03-17] MEDS: Escitalopram Oxalate 10 mg Tablet PO SCH (08:20)
[2019-03-17] MEDS: Potassium Chloride 20 MEQ TAB PO SCH ×2 (08:20→22:15)
[2019-03-17] MEDS: Enoxaparin Sodium 40 MG/0.4 ML SYRINGE SC SCH (08:21)
[2019-03-17 08:40] LABS: Hemoglobin 12.7 g/dL (12.0-16.0); Mean Corpuscular HGB CONC 30.9 g/dL (32.0-36.0); Mean Corpuscular Hemoglobin 29.5 pg (27.0-31.0); Mean Corpuscular Volume 95.6 fL (78.0-98.0); Mean Platelet Volume 9.3 fL (7.4-10.4); Platelet Count 298 thou/uL (130-400); RBC Distribution Width 12.7 % (11.5-14.5); Red Blood Cell (RBC) Count 4.29 mill/uL (4.20-5.40); White Blood Cell (WBC) Count 8.3 thou/uL (4.8-10.8)
[2019-03-17 08:43] LABS: Calcium 7.8 mg/dL (7.8-10.44); Chloride 105 mmol/L (98-107); Sodium 138 mmol/L (136-145)
[2019-03-17 08:44] LABS: Glucose 140 mg/dL (80-115)
[2019-03-17 08:45] LABS: Anion Gap 15 mmol/L (10-20); Carbon Dioxide 21 mmol/L (23-31)
[2019-03-17] MEDS ORDERED: D5 LR w/20 mEq KCL 1,000 ML IV SCH ×2 (08:45→09:15)
[2019-03-17 08:47] LABS: Calc. Creatinine Clearance 108 mL/min (70-130); Estimated GFR-MDRD Greater than 90
[2019-03-17 08:48] LABS: BUN (Urea Nitrogen) 6 mg/dL (9.8-20.1)
[2019-03-17 09:00] LABS: Anion Gap 14 mmol/L (10-20); BUN (Urea Nitrogen) 6 mg/dL (9.8-20.1); Calc. Creatinine Clearance 115 mL/min (70-130); Calcium 7.6 mg/dL (7.8-10.44); Carbon Dioxide 21 mmol/L (23-31); Chloride 106 mmol/L (98-107); Estimated GFR-MDRD Greater than 90; Glucose 135 mg/dL (80-115); Potassium 3.1 mmol/L (3.5-5.1); Sodium 138 mmol/L (136-145)
[2019-03-17 09:17] LABS: Band 11 % (5-11); Lymphocytes 13 % (21-51); MDiff Complete? YES; Monocytes 4 % (0-10); Neutrophil 72 % (42-75); RBC Morphology Normal
[2019-03-17] MEDS ORDERED: Ketorolac Tromethamine 30 MG/ML VIAL IVP SCH (09:45)
[2019-03-17] MEDS ORDERED: Acetaminophen 1,000 MG in Premix Bag 1 BAG IVPB SCH (09:45)
[2019-03-17] MEDS ORDERED: Bupivacaine/Epinephrine 0.25% 30 ML VIAL ONE (11:56)
[2019-03-17] MEDS ORDERED: Ketorolac Tromethamine 30 MG/ML VIAL ONE (12:17)
[2019-03-17] MEDS ORDERED: Fentanyl 250 MCG/5 ML VIAL ONE (12:27)
--- NOTE | 2019-03-17 14:47 | PRG ---
DATE OF SERVICE: 03/17/2019 This is an assumption of care note. Ms. Barraza has been hospitalized since March 13. Today is hospital day #5. She presented with microperforated diverticulitis. She was treated with bowel rest and IV antibiotics and seemed to be improving until yesterday. For reasons that are uncertain, a followup CT scan was performed with rectal contrast. The patient states that ever since that CT scan, she has been feeling poorly. The CT scan demonstrates increased free air within the abdomen. There was no definite contrast from the colon that I can see that has extravasated outside the colon. Nonetheless, she is clearly having significantly increased abdominal pain currently. I have fully reviewed the initial consultation by Dr. Ellis. I have reviewed all of her laboratory and radiologic studies. I have performed a full physical examination on her today. OBJECTIVE: VITAL SIGNS: On exam today, her temperature is 98.2, pulse is 100 and this is up from the 80s and 90s yesterday, and blood pressure is 159/83. LUNGS: Clear to auscultation. ABDOMEN: Mildly to moderately distended and firm diffusely with tenderness in all 4 quadrants. LABORATORY DATA: Her white blood cell count was down yesterday from 18 to 14.6. CBC from today is pending. She had electrolyte irregularities yesterday. Her metabolic panel from today is pending also. ASSESSMENT AND PLAN: The patient with perforated diverticulitis. She clearly requires surgery at this time. I will initially attempt laparoscopic washout. Depending upon findings, it is possible that she will require a sigmoid colectomy with colostomy. I have discussed all this in detail with the patient as well as potential risks. She understands and agrees to proceed with surgery at this time. Job ID: [id number]
[2019-03-17] MEDS ORDERED: Sodium Chloride 0.9% 30 ML ONE (14:57)
--- NOTE | 2019-03-17 16:03 | RAD ---
Chest AP view INDICATION: Line placement COMPARISON: Chest radiograph dated April 14, 2014 FINDINGS: Lungs:The lungs are hypoventilated. There is subsegmental atelectasis involving both lung bases. Cardiac silhouette pulmonary vasculature:There is a left subclavian central venous catheter with the tip of the catheter projecting in the region of the right atrium. Pleural spaces:No definite pleural effusion is evident. No pneumothorax is demonstrated. Upper abdomen:The intraperitoneal gas seen on the CT of the abdomen and pelvis is not as well detaile d as on the comparison CT evaluation performed earlier on 03/16/2019 at 6:20 PM Osseous structures: No acute osseous abnormality. IMPRESSION: 1. New left subclavian central venous catheter without evidence of pneumothorax. 2. Hypoventilation with bibasilar atelectasis. 3. Accentuation of the cardiac silhouette due to low lung volumes.
[2019-03-17] MEDS ORDERED: Fentanyl 100 MCG/2 ML VIAL ONE ×3 (16:17→17:52)
[2019-03-17] MEDS ORDERED: Ondansetron HCl/PF 4 MG/2 ML Vial IVP PRN (16:26)
[2019-03-17] MEDS ORDERED: Piperacillin/Tazobactam 3.375 GM VIAL ONE (16:26)
[2019-03-17] MEDS ORDERED: Succinylcholine Chloride 20 MG/ML 10 ml SYRINGE FS ONE (16:30)
[2019-03-17] MEDS ORDERED: PHENYLEPHRINE-NS 100 MCG/ML 10 ML SYRINGE ONE (16:30)
[2019-03-17] MEDS ORDERED: Glycopyrrolate 0.2 MG/ML 5 ML SYRINGE ONE (16:30)
[2019-03-17] MEDS ORDERED: Ondansetron PF 4 MG/2 ML Vial ONE ×2 (16:30→16:57)
[2019-03-17] MEDS ORDERED: PROPOFOL 200 MG/20 ML VIAL ONE (16:30)
[2019-03-17] MEDS ORDERED: Lidocaine 1% PF 5 ML VIAL ONE (16:30)
[2019-03-17] MEDS ORDERED: Rocuronium Bromide 10 MG/ML (10ML VIAL) ONE (16:30)
[2019-03-17] MEDS ORDERED: Dexamethasone 20 MG/5 ML VIAL ONE (16:30)
[2019-03-17] MEDS ORDERED: D5 1/2 NS w/20 mEq KCL 1,000 ML ONE (16:48)
--- NOTE | 2019-03-17 16:50 | PDOC.PN ---
- Subjective Encounter Start Date: 03/17/19 Encounter Start Time: 16:49 Subjective: pt seen & examined in PACU.feels OK. not much pain in abdomen -: no SOB. -: s/p colostomy - Objective Resuscitation Status - Order Detail: 03/14/19 00:03 Resuscitation Status Routine Resuscitation Status: FULL: Full Resuscitation Discussed with: discussed w pt MAR Reviewed: Yes Vital Signs & Weight: Vital Signs (12 hours) Temp Pulse Resp BP Pulse Ox 03/17/19 10:25 98.1 F 103 H 18 148/76 H 95 03/17/19 07:43 98.2 F 100 18 159/83 H 93 L Weight Admit Weight 172 lb 4.8 oz Weight 172 lb 4.8 oz I&O: 03/16/19 03/17/19 03/18/19 06:59 06:59 06:59 Intake Total 1450 2278 Balance 1450 2278 Result Diagrams: 03/17/19 08:29 03/17/19 08:29 Additional Labs: Accuchecks 03/17/19 03/17/19 03/16/19 16:07 05:13 21:39 POC Glucose 124 H 122 H 121 H 03/16/19 16:16 POC Glucose 103 Microbiology 03/13/19 17:32 Urine clean catch Urine Culture - Final NO GROWTH AT 36 HOURS 03/13/19 21:54 Venous blood - Right Hand Blood Culture - Preliminary NO GROWTH AT 48 HOURS 03/13/19 21:54 Venous blood - Left Hand Blood Culture - Preliminary NO GROWTH AT 48 HOURS Phys Exam - Physical Examination Constitutional: NAD HEENT: PERRLA, moist MMs, sclera anicteric, oral pharynx no lesions Neck: no nodes, no JVD, supple, full ROM Respiratory: no wheezing, no rales, no rhonchi, clear to auscultation bilateral Cardiovascular: RRR, no significant murmur, no rub Gastrointestinal: soft post-surgical drain R side,colostomy left side Musculoskeletal: no edema, pulses present Neurological: non-focal, normal sensation, moves all 4 limbs Psychiatric: normal affect, A&O x 3 Skin: no rash Dx/Plan (1) Perforation of sigmoid colon due to diverticulitis Code(s): K57.20 - DVTRCLI OF LG INT W PERFORATION AND ABSCESS W/O BLEEDING Status: Acute Comment: S/P colostomy with washout 03/17/19. cont IV ABx. on zosyn and metronidazole (2) DM type 2 (diabetes mellitus, type 2) Status: Chronic Qualifiers: Diabetes mellitus [facility] insulin use: without combatant diver officer use Diabetes mellitus complication status: with unspecified complications Qualified Code(s) : E11.8 - Type 2 diabetes mellitus with unspecified complications Comment: cont ISS w accuchecks (3) Dyslipidemia Code(s): E78.5 - HYPERLIPIDEMIA, UNSPECIFIED Status: Chronic (4) HTN (hypertension) Code(s): I10 - ESSENTIAL (PRIMARY) HYPERTENSION Status: Chronic Qualifiers: Hypertension type: essential hypertension Qualified Code(s): I10 - Essential (primary) hypertension Comment: controlled. cont home meds of Losartan once cleared to take PO. reviewed (5) Hypothyroidism Code(s): E03.9 - HYPOTHYROIDISM, UNSPECIFIED Status: Chronic Qualifiers: Hypothyroidism type: unspecified Qualified Code(s): E03.9 - Hypothyroidism , unspecified Comment: cont levothyroxine - Plan DVT proph w/SCDs post-op care. -: am labs -: Hd stable * . Review of Systems - Review of Systems Constitutional: negative: fever, chills, sweats, weakness, malaise, other ENT: negative: Ear Pain, Ear Discharge, Nose Pain, Nose Discharge, Nose Congestion, Mouth Pain, Mouth Swelling, Throat Pain, Throat Swelling, Other Respiratory: negative: Cough, Dry, Shortness of Breath, Hemoptysis, SOB with Excertion, Pleuritic Pain, Sputum, Wheezing Cardiovascular: negative: chest pain, palpitations, orthopnea, paroxysmal nocturnal dyspnea, edema, light headedness, other Gastrointestinal: negative: Nausea, Vomiting, Abdominal Pain, Diarrhea, Constipation, Melena, Hematochezia, Other Genitourinary: negative: Dysuria, Frequency, Incontinence, Hematuria, Retention , Other Musculoskeletal: negative: Neck Pain, Shoulder Pain, Arm Pain, Back Pain, Hand Pain, Leg Pain, Foot Pain, Other Neurological: negative: Weakness, Numbness, Incoordination, Change in Speech, Confusion, Seizures, Other - Medications/Allergies Allergies/Adverse Reactions: Allergies Allergy/AdvReac Type Severity Reaction Status Date / Time Sulfa (Sulfonamide Allergy Severe Verified 03/13/19 21:23 Antibiotics) sulfamethoxazole Allergy Severe Verified 03/13/19 21:23 [From Bactrim] trimethoprim [From Bactrim] Allergy Severe Verified 03/13/19 21:23 Medications: Current Medications Acetaminophen (Tylenol) 650 mg [place] Q4H PRN PRN Reason: Headache/Fever/Mild Pain (1-3) Acetaminophen (Tylenol) 650 mg PO Q4H PRN PRN Reason: Headache/Fever/Mild Pain (1-3) Last Admin: 03/15/19 18:43 Dose: 650 mg Hydrocodone Bitart/Acetaminophen ([place] 5/325) 1 tab PO Q4H PRN PRN Reason: Moderate Pain (4-6) Last Admin: 03/16/19 08:44 Dose: 1 tab Hydrocodone Bitart/Acetaminophen ([place] 5/325) 2 tab PO Q4H PRN PRN Reason: Severe Pain (7-10) Last Admin: 03/17/19 08:20 Dose: 2 tab Benzonatate (Tessalon) 100 mg PO Q6H PRN PRN Reason: Cough Bisacodyl (Dulcolax) 10 mg PO DAILYPRN PRN PRN Reason: Constipation Last Admin: 03/15/19 17:44 Dose: 10 mg Bupropion HCl (Wellbutrin Xl) 300 mg PO DAILY [facility] Last Admin: 03/17/19 08:20 Dose: 300 mg Calcium Carbonate (Tums) 1,000 mg PO Q4H PRN PRN Reason: Heartburn or Indigestion Last Admin: 03/17/19 06:18 Dose: 1,000 mg Clonidine (Catapres) 0.1 mg PO Q4H PRN PRN Reason: SBP >160 ____ Dextrose/Water (Dextrose 50%) 25 gm SLOW IVP PRN PRN PRN Reason: Hypoglycemia Enoxaparin Sodium (Lovenox) 40 mg SC 0900 [facility] Last Admin: 03/17/19 08:21 Dose: Not Given Escitalopram Oxalate (Lexapro) 10 mg PO DAILY [facility] Last Admin: 03/17/19 08:20 Dose: 10 mg Famotidine (Pepcid) 20 mg SLOW IVP Q12HR [facility] Last Admin: 03/17/19 08:20 Dose: 20 mg Fentanyl (Pacu-Sublimaze) 50 mcg SLOW IVP Q10MIN PRN PRN Reason: Moderate to Severe Pain (6-10) Stop: 03/17/19 19:27 Glucagon (Glucagon) 1 mg IM PRN PRN PRN Reason: Hypoglycemia Guaifenesin (Robitussin Sf) 200 mg PO Q4H PRN PRN Reason: Cough Hydralazine HCl (Apresoline) 10 mg SLOW IVP Q4H PRN PRN Reason: SBP > 180 and HR < 70 Metronidazole 500 mg/ Device 100 mls @ 100 mls/hr IVPB Q8HR [facility] Last Admin: 03/17/19 05:33 Dose: 100 mls Piperacillin Sod/Tazobactam (Sod 3.375 gm/ Sodium Chloride) 100 mls @ 200 mls/ hr IVPB Q6HR [facility] Last Admin: 03/17/19 11:10 Dose: 100 mls Dextrose/Water (D5w) 1,000 mls @ 0 mls/hr IV .Q0M PRN PRN Reason: Hypoglycemia Acetaminophen 1,000 mg/ Device 100 mls @ 400 mls/hr IVPB WILLCALL [facility] Stop: 03/18/19 09:46 Insulin Human Lispro (Humalog) 0 units SC .MODERATE SLIDING SC PRN PRN Reason: Moderate Correctional Scale Insulin Human Lispro (Humalog) 0 units SC .BEDTIME SLIDING SC PRN PRN Reason: Bedtime Correctional Scale Ketorolac Tromethamine (Toradol) 15 mg IVP [facility] Stop: 03/22/19 09:46 Levothyroxine Sodium (Synthroid) 175 mcg PO 0600 [facility] Last Admin: 03/17/19 05:33 Dose: 175 mcg Morphine Sulfate (Morphine) 2 mg SLOW IVP Q4H PRN PRN Reason: severe pain Last Admin: 03/17/19 06:17 Dose: 2 mg Nitroglycerin (Nitrostat) 0.4 mg SL Q5MIN PRN PRN Reason: Chest Pain Ondansetron HCl (Zofran) 4 mg IVP Q6H PRN PRN Reason: Nausea/Vomiting Ondansetron HCl (Zofran) 4 mg IVP Q6H PRN PRN Reason: Nausea/Vomiting Ondansetron HCl (Pacu-Zofran) 4 mg IVP ONE PRN PRN Reason: Nausea/Vomiting Stop: 03/17/19 19:26 Potassium Chloride (K-Dur) 40 meq PO BID-[facility] Last Admin: 03/17/19 08:20 Dose: 40 meq Senna/Docusate Sodium (Senokot S) 2 tab PO BID PRN PRN Reason: Constipation Last Admin: 03/16/19 13:52 Dose: 2 tab Sodium Chloride (Flush - Normal Saline) 10 ml IVF Q12HR [facility] Last Admin: 03/17/19 08:21 Dose: Not Given Sodium Chloride (Flush - Normal Saline) 10 ml IVF PRN PRN PRN Reason: Saline Flush Last Admin: 03/13/19 21:50 Dose: 10 ml
[2019-03-17] MEDS ORDERED: hydrALAZINE 20 MG/ML VIAL SLOW IVP PRN (19:54)
[2019-03-17] MEDS ORDERED: Promethazine HCl 25 MG/ML VIAL IM PRN (19:54)
[2019-03-17] MEDS ORDERED: Morphine 4 MG/ML VIAL SLOW IVP PRN (19:54)
[2019-03-17] MEDS: D5 1/2 NS w/20 mEq KCL 1,000 ML IV SCH (21:13)
[2019-03-17] MEDS: Famotidine 20 MG TAB PO SCH (21:14)
[2019-03-17] MEDS: Ketorolac Tromethamine 30 MG/ML VIAL IVP SCH (21:48)
[2019-03-17] MEDS: Acetaminophen 1,000 MG in Premix Bag 1 BAG IVPB SCH (21:55)
[2019-03-17] MEDS: Morphine 4 MG/ML VIAL SLOW IVP PRN (22:56)
[2019-03-18] MEDS: Piperacillin/Tazobactam 3.375 GM in Sodium Chloride 0.9% 100 ML IVPB SCH ×5 (00:49→23:46)
[2019-03-18] MEDS: Acetaminophen 1,000 MG in Premix Bag 1 BAG IVPB SCH ×3 (02:33→13:35)
[2019-03-18] MEDS: Ketorolac Tromethamine 30 MG/ML VIAL IVP SCH ×4 (02:34→20:21)
[2019-03-18] MEDS: D5 1/2 NS w/20 mEq KCL 1,000 ML IV SCH (04:56)
[2019-03-18] MEDS: metroNIDAZOLE 500 MG in Premix Bag 1 BAG IVPB SCH ×3 (05:10→21:20)
[2019-03-18] MEDS: Levothyroxine 175 MCG TAB PO SCH (05:10)
[2019-03-18 05:44] LABS: Anion Gap 9 mmol/L (10-20); BUN (Urea Nitrogen) 8 mg/dL (9.8-20.1); Calc. Creatinine Clearance 94 mL/min (70-130); Carbon Dioxide 25 mmol/L (23-31); Chloride 106 mmol/L (98-107); Estimated GFR-MDRD 84; Glucose 205 mg/dL (80-115); Potassium 3.5 mmol/L (3.5-5.1); Sodium 136 mmol/L (136-145)
[2019-03-18 05:46] LABS: Band 48 % (5-11); Hemoglobin 11.3 g/dL (12.0-16.0); Lymphocytes 8 % (21-51); MDiff Complete? YES; Mean Corpuscular HGB CONC 32.9 g/dL (32.0-36.0); Mean Corpuscular Hemoglobin 31.7 pg (27.0-31.0); Mean Corpuscular Volume 96.4 fL (78.0-98.0); Mean Platelet Volume 9.1 fL (7.4-10.4); Monocytes 6 % (0-10); Neutrophil 38 % (42-75); Platelet Count 313 thou/uL (130-400); Platelet Morphology Comment Appears Adequate; RBC Distribution Width 12.8 % (11.5-14.5); Red Blood Cell (RBC) Count 3.56 mill/uL (4.20-5.40); White Blood Cell (WBC) Count 16.4 thou/uL (4.8-10.8)
[2019-03-18] MEDS ORDERED: Sodium Chloride 0.9% 1,000 ML IV SCH (06:15)
[2019-03-18] MEDS: 1/2 NS w/KCL 20 mEq 1,000 ML IV SCH ×2 (06:42→14:41)
[2019-03-18] MEDS: Bupropion 150 MG XL TAB PO SCH (07:59)
[2019-03-18] MEDS: Enoxaparin Sodium 40 MG/0.4 ML SYRINGE SC SCH (07:59)
[2019-03-18] MEDS: Famotidine 20 MG TAB PO SCH ×2 (07:59→21:17)
[2019-03-18] MEDS: Escitalopram Oxalate 10 mg Tablet PO SCH (08:00)
[2019-03-18] MEDS: Famotidine/PF 20 mg/2ml Vial SLOW IVP SCH ×4 (08:00→21:17)
[2019-03-18] MEDS: Calcium Carbonate 500 MG ChewTAB PO PRN ×2 (10:02→21:20)
--- NOTE | 2019-03-18 11:57 | PRG ---
DATE OF SERVICE: 03/18/2019 SUBJECTIVE: Ms. Barraza is postoperative day #1 from a laparotomy with sigmoid colectomy and proximal diverting colostomy (Emmanuel's procedure). She had feculent and purulent diverticulitis. She has done well overnight. She complains of minimal pain. She has not yet ambulated. She has been sipping clear liquids. Her urine output overnight was only 210 mL. She denies nausea or vomiting. Her ostomy is intact, but with no significant output yet. OBJECTIVE: VITAL SIGNS: On examination, she is afebrile with temperature of 98.1, pulse is 83, and blood pressure 101/64. GENERAL: She is in good spirits and has minimal complaints. She is alert and oriented x3. LUNGS: Clear to auscultation. ABDOMEN: Dressing intact. She has a few scattered bowel sounds. Left-sided ostomy is viable. Right-sided drain is draining serosanguineous fluid. There was 150 mL out of that overnight. LABORATORY DATA: Her CBC reveals a hemoglobin of 11.3 with a white blood cell count of 16.4. She has 48% bandemia this morning. Chemistry panel shows essentially normal electrolytes. Her BUN and creatinine are normal. Her blood sugar is a little elevated at 205. ASSESSMENT: She seems to be doing well following her surgery. She is little hypovolemic as indicated by her low urine output. She is being treated with a fluid bolus this morning. I will also take the dextrose out of her IV fluid secondary to her elevated glucose levels. She will be encouraged to ambulate today and will be able to have ice chips. I anticipate that it will be 2 or 3 days before her expected postoperative ileus resolves. I will advance her diet when appropriate. Job ID: [id number]
[2019-03-18] MEDS ORDERED: HYDROcodone/Acetaminophen 7.5/325 mg Tablet PO PRN (12:57)
--- NOTE | 2019-03-18 14:27 | PDOC.PN ---
- Subjective Encounter Start Date: 03/18/19 Encounter Start Time: 14:26 Subjective: feels OK. not balbir abd pain. poor appetite. had some liquids -: no nausea/vomiting -: RN reports Poor Urine Output - Objective Resuscitation Status - Order Detail: 03/14/19 00:03 Resuscitation Status Routine Resuscitation Status: FULL: Full Resuscitation Discussed with: discussed w pt SULEMAN Reviewed: Yes Vital Signs & Weight: Vital Signs (12 hours) Temp Pulse Resp BP BP Pulse Ox 03/18/19 10:59 97.3 F L 86 18 100/50 L 92 L 03/18/19 07:51 98.1 F 83 16 101/64 92 L 03/18/19 02:39 96 16 112/73 92 L Weight Admit Weight 172 lb 4.8 oz Weight 172 lb 4.8 oz I&O: 03/17/19 03/18/19 03/19/19 06:59 06:59 06:59 Intake Total 2278 2000 Output Total 360 Balance 2278 1640 Result Diagrams: 03/18/19 05:10 03/18/19 05:10 Additional Labs: Accuchecks 03/18/19 03/17/19 03/17/19 11:02 21:18 16:07 POC Glucose 129 H 186 H 124 H Microbiology 03/13/19 17:32 Urine clean catch Urine Culture - Final NO GROWTH AT 36 HOURS 03/13/19 21:54 Venous blood - Right Hand Blood Culture - Preliminary NO GROWTH AT 48 HOURS 03/13/19 21:54 Venous blood - Left Hand Blood Culture - Preliminary NO GROWTH AT 48 HOURS Phys Exam - Physical Examination Constitutional: NAD HEENT: PERRLA, moist MMs, sclera anicteric, TM's clear, oral pharynx no lesions , 2+ tonsils Neck: no nodes, no JVD, supple, full ROM Respiratory: no wheezing, no rales, no rhonchi, clear to auscultation bilateral Cardiovascular: RRR, no significant murmur Gastrointestinal: soft, non-tender, positive bowel sounds serosanguinous discharge in ostomy and drain .mild distension Musculoskeletal: no edema Neurological: non-focal, normal sensation, moves all 4 limbs Psychiatric: normal affect, A&O x 3 Skin: no rash Dx/Plan (1) Perforation of sigmoid colon due to diverticulitis Code(s): K57.20 - DVTRCLI OF LG INT W PERFORATION AND ABSCESS W/O BLEEDING Status: Acute Comment: S/P colostomy with washout 03/17/19. cont IV ABx. on zosyn and metronidazole (2) Oliguria Code(s): R34 - ANURIA AND OLIGURIA Status: Acute Comment: Renal Fx Normal. Suspect Hypovolemia .NS bolus given w/o benefit. will try lasix X1.monitor. hensley in place.cont IVF (3) Leucocytosis Code(s): D72.829 - ELEVATED WHITE BLOOD CELL COUNT, UNSPECIFIED Status: Acute Comment: Likely reactive from abdominal surgery recently on 03/17/19.monitor. on ABx for diverticulitis (4) DM type 2 (diabetes mellitus, type 2) Status: Chronic Qualifiers: Diabetes mellitus halfway insulin use: without halfway use Diabetes mellitus complication status: with unspecified complications Qualified Code(s) : E11.8 - Type 2 diabetes mellitus with unspecified complications Comment: cont ISS w accuchecks (5) Dyslipidemia Code(s): E78.5 - HYPERLIPIDEMIA, UNSPECIFIED Status: Chronic (6) HTN (hypertension) Code(s): I10 - ESSENTIAL (PRIMARY) HYPERTENSION Status: Chronic Qualifiers: Hypertension type: essential hypertension Qualified Code(s): I10 - Essential (primary) hypertension Comment: controlled. cont home meds of Losartan once cleared to take PO. reviewed (7) Hypothyroidism Code(s): E03.9 - HYPOTHYROIDISM, UNSPECIFIED Status: Chronic Qualifiers: Hypothyroidism type: unspecified Qualified Code(s): E03.9 - Hypothyroidism , unspecified Comment: cont levothyroxine - Plan continue antibiotics, PT/OT, respiratory therapy, incentive spirometry, out of bed/ambulate, DVT proph w/SCDs encourage ambulation and PO intake -: Post-op care -: wound e/ostomy care -: HD stable -: am labs * . Review of Systems - Review of Systems Constitutional: weakness, malaise. negative: fever, chills, sweats, other Respiratory: negative: Cough, Dry, Shortness of Breath, Hemoptysis, SOB with Excertion, Pleuritic Pain, Sputum, Wheezing Cardiovascular: negative: chest pain, palpitations, orthopnea, paroxysmal nocturnal dyspnea, edema, light headedness, other Gastrointestinal: Abdominal Pain. negative: Nausea, Vomiting, Diarrhea, Constipation, Melena, Hematochezia, Other Genitourinary: negative: Dysuria, Frequency, Incontinence, Hematuria, Retention , Other Musculoskeletal: negative: Neck Pain, Shoulder Pain, Arm Pain, Back Pain, Hand Pain, Leg Pain, Foot Pain, Other - Medications/Allergies Allergies/Adverse Reactions: Allergies Allergy/AdvReac Type Severity Reaction Status Date / Time Sulfa (Sulfonamide Allergy Severe Verified 03/13/19 21:23 Antibiotics) sulfamethoxazole Allergy Severe Verified 03/13/19 21:23 [From Bactrim] trimethoprim [From Bactrim] Allergy Severe Verified 03/13/19 21:23 Medications: Current Medications Acetaminophen (Tylenol) 650 mg [place] Q4H PRN PRN Reason: Headache/Fever/Mild Pain (1-3) Acetaminophen (Tylenol) 650 mg PO Q4H PRN PRN Reason: Headache/Fever/Mild Pain (1-3) Hydrocodone Bitart/Acetaminophen ([place] 7.5/325) 1 tab PO Q4H PRN PRN Reason: Moderate Pain (4-6) Hydrocodone Bitart/Acetaminophen ([place] 7.5/325) 2 tab PO Q4H PRN PRN Reason: Severe Pain (7-10) Albuterol/Ipratropium (Duoneb) 3 ml NEB Q4H PRN PRN Reason: Wheezing Bupropion HCl (Wellbutrin Xl) 300 mg PO DAILY [facility] Last Admin: 03/18/19 07:59 Dose: 300 mg Calcium Carbonate (Tums) 1,000 mg PO Q4H PRN PRN Reason: Heartburn or Indigestion Last Admin: 03/18/19 10:02 Dose: 1,000 mg Clonidine (Catapres) 0.1 mg PO Q4H PRN PRN Reason: SBP >160 ____ Dextrose/Water (Dextrose 50%) 25 gm SLOW IVP PRN PRN PRN Reason: Hypoglycemia Enoxaparin Sodium (Lovenox) 40 mg SC 0900 [facility] Last Admin: 03/18/19 07:59 Dose: 40 mg Escitalopram Oxalate (Lexapro) 10 mg PO DAILY [facility] Last Admin: 03/18/19 08:00 Dose: 10 mg Famotidine (Pepcid) 20 mg SLOW IVP Q12HR [facility] Last Admin: 03/18/19 08:00 Dose: Not Given Famotidine (Pepcid) 20 mg PO Q12HR [facility] Last Admin: 03/18/19 07:59 Dose: 20 mg Famotidine (Pepcid) 20 mg SLOW IVP Q12HR [facility] Last Admin: 03/18/19 08:00 Dose: Not Given Glucagon (Glucagon) 1 mg IM PRN PRN PRN Reason: Hypoglycemia Guaifenesin (Robitussin Sf) 200 mg PO Q4H PRN PRN Reason: Cough Hydralazine HCl (Apresoline) 10 mg SLOW IVP Q4H PRN PRN Reason: SBP > 180 and HR < 70 Hydralazine HCl (Apresoline) 10 mg SLOW IVP Q4H PRN PRN Reason: SBP > 170 or DBP > 100 Metronidazole 500 mg/ Device 100 mls @ 100 mls/hr IVPB Q8HR [facility] Last Admin: 03/18/19 13:54 Dose: 100 mls Piperacillin Sod/Tazobactam (Sod 3.375 gm/ Sodium Chloride) 100 mls @ 200 mls/ hr IVPB Q6HR [facility] Last Admin: 03/18/19 11:38 Dose: 100 mls Dextrose/Water (D5w) 1,000 mls @ 0 mls/hr IV .Q0M PRN PRN Reason: Hypoglycemia Potassium Chloride/Sodium Chloride (1/2 Ns W/Kcl 20 Meq) 1,000 mls @ 120 mls/ hr IV .Q8H20M [facility] Last Admin: 03/18/19 06:42 Dose: 1,000 mls Insulin Human Lispro (Humalog) 0 units SC .MODERATE SLIDING SC PRN PRN Reason: Moderate Correctional Scale Insulin Human Lispro (Humalog) 0 units SC .BEDTIME SLIDING SC PRN PRN Reason: Bedtime Correctional Scale Ketorolac Tromethamine (Toradol) 15 mg IVP Q6H [facility] Stop: 03/20/19 20:01 Last Admin: 03/18/19 13:36 Dose: 15 mg Levothyroxine Sodium (Synthroid) 175 mcg PO 0600 [facility] Last Admin: 03/18/19 05:10 Dose: 175 mcg Morphine Sulfate (Morphine) 2 mg SLOW IVP Q2H PRN PRN Reason: Mild Pain (1-3) Morphine Sulfate (Morphine) 4 mg SLOW IVP Q2H PRN PRN Reason: Moderate Pain (4-6) Last Admin: 03/17/19 22:56 Dose: 4 mg Nitroglycerin (Nitrostat) 0.4 mg SL Q5MIN PRN PRN Reason: Chest Pain Ondansetron HCl (Zofran) 4 mg IVP Q6H PRN PRN Reason: Nausea/Vomiting Last Admin: 03/18/19 10:02 Dose: 4 mg Ondansetron HCl (Zofran) 4 mg IVP Q6H PRN PRN Reason: Nausea/Vomiting Ondansetron HCl (Zofran) 4 mg IVP Q6H PRN PRN Reason: Nausea/Vomiting Promethazine HCl (Phenergan) 12.5 mg IM Q4H PRN PRN Reason: Nausea/Vomiting Sodium Chloride (Flush - Normal Saline) 10 ml IVF Q12HR [facility] Last Admin: 03/18/19 08:01 Dose: 10 ml Sodium Chloride (Flush - Normal Saline) 10 ml IVF PRN PRN PRN Reason: Saline Flush Last Admin: 03/13/19 21:50 Dose: 10 ml Sodium Chloride (Flush - Normal Saline) 10 ml IVF PRN PRN PRN Reason: Saline Flush
[2019-03-18] MEDS ORDERED: Furosemide 20 MG/2 ML VIAL SLOW IVP SCH (14:30)
[2019-03-18] MEDS ORDERED: Acetaminophen 325 MG TAB PO PRN (18:00)
[2019-03-18] MEDS ORDERED: Acetaminophen 650 MG Suppository PR PRN (18:00)
[2019-03-19] MEDS: Morphine 4 MG/ML VIAL SLOW IVP PRN ×3 (00:32→18:29)
[2019-03-19] MEDS: 1/2 NS w/KCL 20 mEq 1,000 ML IV SCH ×3 (00:46→17:17)
[2019-03-19] MEDS: Ketorolac Tromethamine 30 MG/ML VIAL IVP SCH ×4 (03:09→21:17)
[2019-03-19] MEDS: Piperacillin/Tazobactam 3.375 GM in Sodium Chloride 0.9% 100 ML IVPB SCH ×4 (05:19→23:14)
[2019-03-19] MEDS: Levothyroxine 175 MCG TAB PO SCH (05:19)
[2019-03-19] MEDS: metroNIDAZOLE 500 MG in Premix Bag 1 BAG IVPB SCH ×3 (05:19→21:17)
[2019-03-19 05:35] LABS: Anion Gap 9 mmol/L (10-20); BUN (Urea Nitrogen) 15 mg/dL (9.8-20.1); Calc. Creatinine Clearance 106 mL/min (70-130); Calcium 7.3 mg/dL (7.8-10.44); Carbon Dioxide 27 mmol/L (23-31); Chloride 106 mmol/L (98-107); Estimated GFR-MDRD Greater than 90; Glucose 86 mg/dL (80-115); Potassium 3.6 mmol/L (3.5-5.1); Sodium 138 mmol/L (136-145)
[2019-03-19 05:50] LABS: Band 18 % (5-11); Hemoglobin 10.4 g/dL (12.0-16.0); Lymphocytes 2 % (21-51); MDiff Complete? YES; Mean Corpuscular HGB CONC 31.7 g/dL (32.0-36.0); Mean Corpuscular Hemoglobin 30.6 pg (27.0-31.0); Mean Corpuscular Volume 96.6 fL (78.0-98.0); Mean Platelet Volume 8.9 fL (7.4-10.4); Monocytes 4 % (0-10); Neutrophil 76 % (42-75); Platelet Count 332 thou/uL (130-400); White Blood Cell (WBC) Count 21.9 thou/uL (4.8-10.8)
[2019-03-19] MEDS: Famotidine/PF 20 mg/2ml Vial SLOW IVP SCH ×4 (08:08→21:38)
[2019-03-19] MEDS: Bupropion 150 MG XL TAB PO SCH (08:15)
[2019-03-19] MEDS: Escitalopram Oxalate 10 mg Tablet PO SCH (08:15)
[2019-03-19] MEDS: Famotidine 20 MG TAB PO SCH ×2 (08:15→21:18)
[2019-03-19] MEDS: Enoxaparin Sodium 40 MG/0.4 ML SYRINGE SC SCH (08:16)
--- NOTE | 2019-03-19 09:56 | PRG ---
DATE OF SERVICE: 03/19/2019 SUBJECTIVE: Ms. Barraza is postoperative day #2 from laparotomy and Emmanuel's procedure for perforated diverticulitis with feculent peritonitis. She remains on the surgical floor, where she continues to do well. She has tolerated ice chips yesterday and denies any nausea or vomiting, and desires to advance her diet. She notes minimal appropriate pain. She has had no significant ostomy output. OBJECTIVE: VITAL SIGNS: She is afebrile. Temperature 97.9, pulse 89, blood pressure 117/69. Her urine output yesterday was 950 mL. Her drain output was 330 mL. LUNGS: Clear to auscultation. CARDIAC: Regular rate and rhythm. ABDOMEN: Minimally tender. Dressings are intact. She does have Telfa armida in her incision, but her wound was not inspected. Bowel sounds are present, but hypoactive. Ostomy in the left abdomen appears viable. Drain on the right side appears to be draining serosanguineous fluid. LABORATORY DATA: Her labs show that her hemoglobin is 10.4, white blood cell count is up to 21.9. Her bandemia is dropped from 48% yesterday to 18% today. Chemistry panel reveals normal electrolytes. Her glucose level is down to 86. ASSESSMENT: She is doing well following her laparotomy. I will advance her diet to clear liquids today. She is encouraged to continue ambulating. She has concerns about removing her Hsu catheter. She fears being incontinent. For this reason, it will be left until tomorrow, but will be discontinued tomorrow morning. I would anticipate advancing her diet as she tolerates over the weekend. I do not anticipate she will be ready for discharge prior to Friday. I will have wound care to see her for ostomy evaluation and training. We will also begin to arrange home health nursing to be available when she is discharged to help with ostomy care. Her IV antibiotics will be continued as well. Job ID: [id number]
--- NOTE | 2019-03-19 14:24 | PDOC.PN ---
- Subjective Encounter Start Date: 03/19/19 Encounter Start Time: 14:21 Subjective: feels better. no N/V.no BM in colostomy yet - Objective Resuscitation Status - Order Detail: 03/14/19 00:03 Resuscitation Status Routine Resuscitation Status: FULL: Full Resuscitation Discussed with: discussed w pt SULEMAN Reviewed: Yes Vital Signs & Weight: Vital Signs (12 hours) Temp Pulse Resp BP BP Pulse Ox 03/19/19 11:33 97.9 F 86 18 120/70 91 L 03/19/19 08:36 94 L 03/19/19 07:45 97.9 F 89 14 117/69 91 L 03/19/19 04:00 98 F 82 20 105/63 93 L Weight Admit Weight 172 lb 4.8 oz Weight 172 lb 4.8 oz I&O: 03/18/19 03/19/19 03/20/19 06:59 06:59 06:59 Intake Total 2000 4000 Output Total 360 1330 70 Balance 1640 2670 -70 Result Diagrams: 03/19/19 04:55 03/19/19 04:55 Additional Labs: Accuchecks 03/19/19 03/19/19 03/18/19 11:20 05:39 20:43 POC Glucose 77 77 107 03/18/19 15:55 POC Glucose 129 H Microbiology 03/13/19 17:32 Urine clean catch Urine Culture - Final NO GROWTH AT 36 HOURS 03/13/19 21:54 Venous blood - Right Hand Blood Culture - Preliminary NO GROWTH AT 48 HOURS 03/13/19 21:54 Venous blood - Left Hand Blood Culture - Preliminary NO GROWTH AT 48 HOURS Phys Exam - Physical Examination Constitutional: NAD HEENT: PERRLA, moist MMs, sclera anicteric, oral pharynx no lesions Neck: no nodes, no JVD, supple, full ROM Respiratory: no wheezing, no rales, no rhonchi, clear to auscultation bilateral Cardiovascular: RRR, no significant murmur Gastrointestinal: soft, non-tender, no distention, positive bowel sounds ostomy w serosanguionus fluid Musculoskeletal: no edema, pulses present Neurological: non-focal, normal sensation, moves all 4 limbs Psychiatric: normal affect, A&O x 3 Skin: no rash Dx/Plan (1) Perforation of sigmoid colon due to diverticulitis Code(s): K57.20 - DVTRCLI OF LG INT W PERFORATION AND ABSCESS W/O BLEEDING Status: Acute Comment: S/P colostomy with washout 03/17/19. cont IV ABx. on zosyn and metronidazole Post-op ileus (2) Oliguria Code(s): R34 - ANURIA AND OLIGURIA Status: Acute Comment: Improved Renal Fx Normal. Suspect Hypovolemia .monitor (3) Leucocytosis Code(s): D72.829 - ELEVATED WHITE BLOOD CELL COUNT, UNSPECIFIED Status: Acute Comment: Likely reactive from abdominal surgery recently on 03/17/19.monitor. on ABx for diverticulitis (4) DM type 2 (diabetes mellitus, type 2) Status: Chronic Qualifiers: Diabetes mellitus senior living insulin use: without senior living use Diabetes mellitus complication status: with unspecified complications Qualified Code(s) : E11.8 - Type 2 diabetes mellitus with unspecified complications Comment: cont ISS w accuchecks (5) Dyslipidemia Code(s): E78.5 - HYPERLIPIDEMIA, UNSPECIFIED Status: Chronic (6) HTN (hypertension) Code(s): I10 - ESSENTIAL (PRIMARY) HYPERTENSION Status: Chronic Qualifiers: Hypertension type: essential hypertension Qualified Code(s): I10 - Essential (primary) hypertension Comment: controlled. cont home meds of Losartan once cleared to take PO. reviewed (7) Hypothyroidism Code(s): E03.9 - HYPOTHYROIDISM, UNSPECIFIED Status: Chronic Qualifiers: Hypothyroidism type: unspecified Qualified Code(s): E03.9 - Hypothyroidism , unspecified Comment: cont levothyroxine - Plan continue antibiotics, PT/OT, respiratory therapy, incentive spirometry, out of bed/ambulate, DVT proph w/SCDs CLD today per GS.cont IVF -: HD stable. -: am labs -: monitor WBC as trending up but all Cx negative and clinically better. * . Review of Systems - Review of Systems Constitutional: negative: fever, chills, sweats, weakness, malaise, other ENT: negative: Ear Pain, Ear Discharge, Nose Pain, Nose Discharge, Nose Congestion, Mouth Pain, Mouth Swelling, Throat Pain, Throat Swelling, Other Respiratory: negative: Cough, Dry, Shortness of Breath, Hemoptysis, SOB with Excertion, Pleuritic Pain, Sputum, Wheezing Cardiovascular: negative: chest pain, palpitations, orthopnea, paroxysmal nocturnal dyspnea, edema, light headedness, other Gastrointestinal: negative: Nausea, Vomiting, Abdominal Pain, Diarrhea, Constipation, Melena, Hematochezia, Other Genitourinary: negative: Dysuria, Frequency, Incontinence, Hematuria, Retention , Other Musculoskeletal: negative: Neck Pain, Shoulder Pain, Arm Pain, Back Pain, Hand Pain, Leg Pain, Foot Pain, Other Neurological: negative: Weakness, Numbness, Incoordination, Change in Speech, Confusion, Seizures, Other - Medications/Allergies Allergies/Adverse Reactions: Allergies Allergy/AdvReac Type Severity Reaction Status Date / Time Sulfa (Sulfonamide Allergy Severe Verified 03/13/19 21:23 Antibiotics) sulfamethoxazole Allergy Severe Verified 03/13/19 21:23 [From Bactrim] trimethoprim [From Bactrim] Allergy Severe Verified 03/13/19 21:23 Medications: Current Medications Acetaminophen (Tylenol) 650 mg HI Q4H PRN PRN Reason: Headache/Fever/Mild Pain (1-3) Acetaminophen (Tylenol) 650 mg PO Q4H PRN PRN Reason: Headache/Fever/Mild Pain (1-3) Hydrocodone Bitart/Acetaminophen ([place] 7.5/325) 1 tab PO Q4H PRN PRN Reason: Moderate Pain (4-6) Hydrocodone Bitart/Acetaminophen ([place] 7.5/325) 2 tab PO Q4H PRN PRN Reason: Severe Pain (7-10) Albuterol/Ipratropium (Duoneb) 3 ml NEB Q4H PRN PRN Reason: Wheezing Bupropion HCl (Wellbutrin Xl) 300 mg PO DAILY [facility] Last Admin: 03/19/19 08:15 Dose: 300 mg Calcium Carbonate (Tums) 1,000 mg PO Q4H PRN PRN Reason: Heartburn or Indigestion Last Admin: 03/18/19 21:20 Dose: 1,000 mg Clonidine (Catapres) 0.1 mg PO Q4H PRN PRN Reason: SBP >160 ____ Dextrose/Water (Dextrose 50%) 25 gm SLOW IVP PRN PRN PRN Reason: Hypoglycemia Enoxaparin Sodium (Lovenox) 40 mg SC 0900 [facility] Last Admin: 03/19/19 08:16 Dose: 40 mg Escitalopram Oxalate (Lexapro) 10 mg PO DAILY [facility] Last Admin: 03/19/19 08:15 Dose: 10 mg Famotidine (Pepcid) 20 mg SLOW IVP Q12HR [facility] Last Admin: 03/19/19 08:08 Dose: Not Given Famotidine (Pepcid) 20 mg PO Q12HR [facility] Last Admin: 03/19/19 08:15 Dose: 20 mg Famotidine (Pepcid) 20 mg SLOW IVP Q12HR [facility] Last Admin: 03/19/19 08:08 Dose: Not Given Glucagon (Glucagon) 1 mg IM PRN PRN PRN Reason: Hypoglycemia Guaifenesin (Robitussin Sf) 200 mg PO Q4H PRN PRN Reason: Cough Hydralazine HCl (Apresoline) 10 mg SLOW IVP Q4H PRN PRN Reason: SBP > 180 and HR < 70 Hydralazine HCl (Apresoline) 10 mg SLOW IVP Q4H PRN PRN Reason: SBP > 170 or DBP > 100 Metronidazole 500 mg/ Device 100 mls @ 100 mls/hr IVPB Q8HR [facility] Last Admin: 03/19/19 05:19 Dose: 100 mls Piperacillin Sod/Tazobactam (Sod 3.375 gm/ Sodium Chloride) 100 mls @ 200 mls/ hr IVPB Q6HR [facility] Last Admin: 03/19/19 13:35 Dose: 100 mls Dextrose/Water (D5w) 1,000 mls @ 0 mls/hr IV .Q0M PRN PRN Reason: Hypoglycemia Potassium Chloride/Sodium Chloride (1/2 Ns W/Kcl 20 Meq) 1,000 mls @ 120 mls/ hr IV .Q8H20M [facility] Last Admin: 03/19/19 06:12 Dose: 1,000 mls Insulin Human Lispro (Humalog) 0 units SC .MODERATE SLIDING SC PRN PRN Reason: Moderate Correctional Scale Insulin Human Lispro (Humalog) 0 units SC .BEDTIME SLIDING SC PRN PRN Reason: Bedtime Correctional Scale Ketorolac Tromethamine (Toradol) 15 mg IVP Q6H [facility] Stop: 03/20/19 20:01 Last Admin: 03/19/19 08:14 Dose: 15 mg Levothyroxine Sodium (Synthroid) 175 mcg PO 0600 [facility] Last Admin: 03/19/19 05:19 Dose: 175 mcg Morphine Sulfate (Morphine) 2 mg SLOW IVP Q2H PRN PRN Reason: Mild Pain (1-3) Morphine Sulfate (Morphine) 4 mg SLOW IVP Q2H PRN PRN Reason: Moderate Pain (4-6) Last Admin: 03/19/19 08:15 Dose: 4 mg Nitroglycerin (Nitrostat) 0.4 mg SL Q5MIN PRN PRN Reason: Chest Pain Ondansetron HCl (Zofran) 4 mg IVP Q6H PRN PRN Reason: Nausea/Vomiting Last Admin: 03/18/19 10:02 Dose: 4 mg Ondansetron HCl (Zofran) 4 mg IVP Q6H PRN PRN Reason: Nausea/Vomiting Ondansetron HCl (Zofran) 4 mg IVP Q6H PRN PRN Reason: Nausea/Vomiting Promethazine HCl (Phenergan) 12.5 mg IM Q4H PRN PRN Reason: Nausea/Vomiting Sodium Chloride (Flush - Normal Saline) 10 ml IVF Q12HR [facility] Last Admin: 03/19/19 08:50 Dose: 10 ml Sodium Chloride (Flush - Normal Saline) 10 ml IVF PRN PRN PRN Reason: Saline Flush Last Admin: 03/18/19 14:41 Dose: 10 ml Sodium Chloride (Flush - Normal Saline) 10 ml IVF PRN PRN PRN Reason: Saline Flush
[2019-03-20] MEDS: Ketorolac Tromethamine 30 MG/ML VIAL IVP SCH ×2 (01:56→08:11)
[2019-03-20] MEDS: 1/2 NS w/KCL 20 mEq 1,000 ML IV SCH ×4 (02:03→23:42)
--- NOTE | 2019-03-20 02:11 | OP ---
DATE OF PROCEDURE: 03/17/2019 PREOPERATIVE DIAGNOSIS: Perforated sigmoid diverticulitis. POSTOPERATIVE DIAGNOSIS: Perforated sigmoid diverticulitis with feculent peritonitis. OPERATIONS PERFORMED: Attempted laparoscopy with rapid conversion to exploratory laparotomy, sigmoid colectomy with colostomy creation, drainage of intraabdominal abscess, left salpingo-oophorectomy, left subclavian central line placement. ANESTHESIA: General endotracheal. INDICATIONS: The patient is a 68-year-old white female. She presented several days previously with what was felt to be microperforated diverticulitis. She seemed to be improving until today, at which time, she has developed significantly more abdominal pain and distention. She is taken to the operating room at this time for exploration. My hope was to proceed with a laparoscopic washout. It is recognized as the operation is beginning that her abdomen is more distended than would likely be compatible with laparoscopy. DESCRIPTION OF OPERATION: Informed consent was obtained, the patient was taken to the operating room where general endotracheal anesthesia was obtained with the patient in supine position. Abdomen was prepped with ChloraPrep and draped in sterile fashion. Local anesthetic was infiltrated and 5 mm incision was created infraumbilical. Veress needle was passed through this incision into the peritoneal cavity and pneumoperitoneum established with carbon dioxide up to pressure of 15 mmHg. A 5-mm trocar was passed through the same incision and laparoscopic camera was passed through this port. I instantly recognized feculent peritonitis and did not feel that this operation would be success laparoscopically. Additionally, there was almost no room to work intraabdominal. The port was removed. A midline laparotomy incision was created and dissection was carried through skin and subcutaneous tissue, into the abdominal cavity. I initially aspirated all the feculent contents. I mobilized all adhesions of small bowel. While there was a purulent and feculent material on the small bowel, there was no evidence of small bowel disease. I was able to reflect this into the upper abdomen primarily. The sigmoid colon was noted to be extremely indurated and dense, extending well down at the pelvis. I was able to mobilize this somewhat up out of the pelvis. I then assembled the Bookwalter retraction device. I then turned my attention to the segment of bowel distal to the obvious area of severe inflammation and infection. I created a mesenteric window in the distal sigmoid colon and divided the bowel at this level with a single fire of the PREETHI 75 stapler. I then mobilized the mesentery of the colon proximally. Some stool contents were falling out of a hole in the colon as this was being mobilized. The dissection was carried back to a point to which the colon was again entirely normal. At this level, another mesenteric window was dissected and the colon was divided with a final fire of the PREETHI stapler. The remaining mesentery was taken down using the LigaSure Max device. The specimen was passed off the field. Attention was turned to identification of the left ureter. Because of the severity of the inflammation, I could not accurately identify the left ureter. Attempts had been made to dissect the mesentery high within the mesentery to avoid potential ureteral injury. Attention was turned to the left colon. This was mobilized by incising the white line of Toldt. I took down some of the deeper arcades of the distal colon to give adequate laxity to allow colostomy creation. I then irrigated the abdominal cavity with 4 L of warm saline. All irrigant was aspirated. A #19 round fluted drain was brought within the abdomen, placed down the pelvis and brought out through the right abdominal wall. It was secured with 3-0 nylon suture. The omentum was then reflected inferiorly. Two sheets of Seprafilm were placed. The fascia was closed with running suture of looped #1 PDS. The subcutaneous tissue was copiously irrigated again. The skin was loosely approximated with skin amanda and Telfa armida were placed. Not mentioned earlier is that a colostomy creation was created in the left abdominal wall at about the level of the umbilicus. A small area of skin was excised. The fascia was incised on the anterior and posterior aspects. The colon was withdrawn through the colostomy opening. The colostomy was then matured by removing the staple line. Four-quadrant eversion sutures were placed using 3-0 Vicryl. I then placed remaining sutures, full thickness, between the skin edge and the edge of the colon. Colostomy appliance was then applied. Not mentioned earlier is that the left tube and ovary were densely adherent to the diseased colon and these were removed as a single specimen, dividing connections using the LigaSure device. After the operation had been completed, attention was turned to central line placement. The left chest was prepped with ChloraPrep and draped in sterile fashion. A large gauge needle was passed under the clavicle in subclavian vein. Guidewire was passed through the needle. Skin was incised, tract was dilated, a 7-Trinidadian triple-lumen catheter was passed over the wire. Each lumen aspirated blood freely and was flushed with heparinized saline. Catheter was secured at skin exit site with 3-0 silk suture. Sterile occlusive dressing was applied. There were no complications. Blood loss was negligible. The patient tolerated the procedure well and was taken to recovery room in stable condition. Job ID: [id number]
[2019-03-20] MEDS: metroNIDAZOLE 500 MG in Premix Bag 1 BAG IVPB SCH ×3 (05:26→22:34)
[2019-03-20] MEDS: Levothyroxine 175 MCG TAB PO SCH (05:26)
[2019-03-20] MEDS: Piperacillin/Tazobactam 3.375 GM in Sodium Chloride 0.9% 100 ML IVPB SCH ×4 (05:27→23:41)
[2019-03-20] MEDS: HYDROcodone/Acetaminophen 7.5/325 mg Tablet PO PRN (05:47)
[2019-03-20 06:00] LABS: Anion Gap 10 mmol/L (10-20); BUN (Urea Nitrogen) 11 mg/dL (9.8-20.1); Calc. Creatinine Clearance 122 mL/min (70-130); Calcium 7.1 mg/dL (7.8-10.44); Carbon Dioxide 26 mmol/L (23-31); Chloride 105 mmol/L (98-107); Estimated GFR-MDRD Greater than 90; Glucose 94 mg/dL (80-115); Magnesium 1.6 mg/dL (1.6-2.6); Potassium 3.6 mmol/L (3.5-5.1); Sodium 137 mmol/L (136-145)
[2019-03-20 06:25] LABS: Band 14 % (5-11); Eosinophils 2 % (0-10); Lymphocytes 10 % (21-51); MDiff Complete? YES; Mean Corpuscular HGB CONC 32.2 g/dL (32.0-36.0); Mean Corpuscular Volume 96.3 fL (78.0-98.0); Mean Platelet Volume 8.4 fL (7.4-10.4); Monocytes 9 % (0-10); Neutrophil 64 % (42-75); Platelet Count 386 thou/uL (130-400); Platelet Morphology Comment Appears Adequate; Reactive Lymphocytes 1 % (0-10); Red Blood Cell (RBC) Count 3.22 mill/uL (4.20-5.40); White Blood Cell (WBC) Count 24.1 thou/uL (4.8-10.8)
[2019-03-20] MEDS: Enoxaparin Sodium 40 MG/0.4 ML SYRINGE SC SCH (08:11)
[2019-03-20] MEDS: Bupropion 150 MG XL TAB PO SCH (08:11)
[2019-03-20] MEDS: Escitalopram Oxalate 10 mg Tablet PO SCH (08:11)
[2019-03-20] MEDS: Famotidine 20 MG TAB PO SCH ×2 (08:12→20:30)
[2019-03-20] MEDS: Famotidine/PF 20 mg/2ml Vial SLOW IVP SCH ×3 (08:12→20:27)
[2019-03-20] MEDS ORDERED: Potassium Phosphate 9 MMOL in Sodium Chloride 0.9% 100 ML IVPB SCH (09:30)
[2019-03-20] MEDS: Calcium Carbonate 500 MG ChewTAB PO PRN (11:11)
[2019-03-20] MEDS: Acetaminophen 325 MG TAB PO SCH ×5 (12:48→23:47)
[2019-03-20] MEDS: Ibuprofen 200 MG TAB PO SCH ×2 (12:49→20:29)
--- NOTE | 2019-03-20 13:37 | PDOC.PN ---
- Subjective Encounter Start Date: 03/20/19 Encounter Start Time: 13:35 Subjective: feels much better. eating w/o N/V.some soft stools on ostomy -: walked w PT - Objective Resuscitation Status - Order Detail: 03/14/19 00:03 Resuscitation Status Routine Resuscitation Status: FULL: Full Resuscitation Discussed with: discussed w pt MAR Reviewed: Yes Vital Signs & Weight: Vital Signs (12 hours) Temp Pulse Resp BP BP Pulse Ox 03/20/19 12:06 98.4 F 85 16 126/76 93 L 03/20/19 08:16 97.6 F 84 16 149/75 H 92 L 03/20/19 04:37 98.2 F 86 18 127/66 93 L Weight Admit Weight 172 lb 4.8 oz Weight 172 lb 4.8 oz I&O: 03/19/19 03/20/19 03/21/19 06:59 06:59 06:59 Intake Total 4000 3690 Output Total 1330 1235 Balance 2670 2455 Result Diagrams: 03/20/19 05:15 03/20/19 05:15 Additional Labs: Accuchecks 03/20/19 03/20/19 03/19/19 12:05 05:43 21:06 POC Glucose 115 H 82 93 03/19/19 15:27 POC Glucose 108 Laboratory Tests 03/20/19 05:15 Phosphorus 2.0 L Phys Exam - Physical Examination Constitutional: NAD HEENT: PERRLA, moist MMs, sclera anicteric, oral pharynx no lesions Neck: no nodes, no JVD, supple, full ROM Respiratory: no wheezing, no rales, no rhonchi, clear to auscultation bilateral Cardiovascular: RRR, no significant murmur Gastrointestinal: soft, non-tender, no distention, positive bowel sounds Ostomy w little soft stools mixed w bloody discharge Musculoskeletal: no edema, pulses present Neurological: non-focal, normal sensation, moves all 4 limbs Dx/Plan (1) Perforation of sigmoid colon due to diverticulitis Code(s): K57.20 - DVTRCLI OF LG INT W PERFORATION AND ABSCESS W/O BLEEDING Status: Acute Comment: S/P colostomy with washout 03/17/19. cont IV ABx. on zosyn and metronidazole Post-op ileus (2) Oliguria Code(s): R34 - ANURIA AND OLIGURIA Status: Acute Comment: Improved Renal Fx Normal. Suspect Hypovolemia .monitor (3) Leucocytosis Code(s): D72.829 - ELEVATED WHITE BLOOD CELL COUNT, UNSPECIFIED Status: Acute Comment: Likely reactive from abdominal surgery recently on 03/17/19.monitor. on ABx for diverticulitis (4) DM type 2 (diabetes mellitus, type 2) Status: Chronic Qualifiers: Diabetes mellitus skilled nursing insulin use: without marine oil terminal superintendent use Diabetes mellitus complication status: with unspecified complications Qualified Code(s) : E11.8 - Type 2 diabetes mellitus with unspecified complications Comment: cont ISS w accuchecks (5) Dyslipidemia Code(s): E78.5 - HYPERLIPIDEMIA, UNSPECIFIED Status: Chronic (6) HTN (hypertension) Code(s): I10 - ESSENTIAL (PRIMARY) HYPERTENSION Status: Chronic Qualifiers: Hypertension type: essential hypertension Qualified Code(s): I10 - Essential (primary) hypertension Comment: controlled. cont home meds of Losartan once cleared to take PO. reviewed (7) Hypothyroidism Code(s): E03.9 - HYPOTHYROIDISM, UNSPECIFIED Status: Chronic Qualifiers: Hypothyroidism type: unspecified Qualified Code(s): E03.9 - Hypothyroidism , unspecified Comment: cont levothyroxine - Plan DVT proph w/SCDs increase ambulation and PO intake -: supportive care -: DC when drain is out and OK w GS -: HD stable -: AM labs * . Review of Systems - Review of Systems Constitutional: weakness. negative: fever, chills, sweats, malaise, other ENT: negative: Ear Pain, Ear Discharge, Nose Pain, Nose Discharge, Nose Congestion, Mouth Pain, Mouth Swelling, Throat Pain, Throat Swelling, Other Respiratory: negative: Cough, Dry, Shortness of Breath, Hemoptysis, SOB with Excertion, Pleuritic Pain, Sputum, Wheezing Cardiovascular: negative: chest pain, palpitations, orthopnea, paroxysmal nocturnal dyspnea, edema, light headedness, other Gastrointestinal: negative: Nausea, Vomiting, Abdominal Pain, Diarrhea, Constipation, Melena, Hematochezia, Other Genitourinary: negative: Dysuria, Frequency, Incontinence, Hematuria, Retention , Other Musculoskeletal: negative: Neck Pain, Shoulder Pain, Arm Pain, Back Pain, Hand Pain, Leg Pain, Foot Pain, Other Neurological: negative: Weakness, Numbness, Incoordination, Change in Speech, Confusion, Seizures, Other - Medications/Allergies Allergies/Adverse Reactions: Allergies Allergy/AdvReac Type Severity Reaction Status Date / Time Sulfa (Sulfonamide Allergy Severe Verified 03/13/19 21:23 Antibiotics) sulfamethoxazole Allergy Severe Verified 03/13/19 21:23 [From Bactrim] trimethoprim [From Bactrim] Allergy Severe Verified 03/13/19 21:23 Medications: Current Medications Acetaminophen (Tylenol) 650 mg PO Q4H [facility] Last Admin: 03/20/19 12:48 Dose: 650 mg Hydrocodone Bitart/Acetaminophen ([place] 7.5/325) 1 tab PO Q4H PRN PRN Reason: Moderate Pain (4-6) Hydrocodone Bitart/Acetaminophen ([place] 7.5/325) 2 tab PO Q4H PRN PRN Reason: Severe Pain (7-10) Last Admin: 03/20/19 05:47 Dose: 2 tab Albuterol/Ipratropium (Duoneb) 3 ml NEB Q4H PRN PRN Reason: Wheezing Bupropion HCl (Wellbutrin Xl) 300 mg PO DAILY [facility] Last Admin: 03/20/19 08:11 Dose: 300 mg Calcium Carbonate (Tums) 1,000 mg PO Q4H PRN PRN Reason: Heartburn or Indigestion Last Admin: 03/20/19 11:11 Dose: 1,000 mg Clonidine (Catapres) 0.1 mg PO Q4H PRN PRN Reason: SBP >160 ____ Dextrose/Water (Dextrose 50%) 25 gm SLOW IVP PRN PRN PRN Reason: Hypoglycemia Enoxaparin Sodium (Lovenox) 40 mg SC 0900 [facility] Last Admin: 03/20/19 08:11 Dose: 40 mg Escitalopram Oxalate (Lexapro) 10 mg PO DAILY [facility] Last Admin: 03/20/19 08:11 Dose: 10 mg Famotidine (Pepcid) 20 mg PO Q12HR [facility] Last Admin: 03/20/19 08:12 Dose: 20 mg Famotidine (Pepcid) 20 mg SLOW IVP Q12HR [facility] Last Admin: 03/20/19 08:12 Dose: Not Given Glucagon (Glucagon) 1 mg IM PRN PRN PRN Reason: Hypoglycemia Guaifenesin (Robitussin Sf) 200 mg PO Q4H PRN PRN Reason: Cough Hydralazine HCl (Apresoline) 10 mg SLOW IVP Q4H PRN PRN Reason: SBP > 170 or DBP > 100 Metronidazole 500 mg/ Device 100 mls @ 100 mls/hr IVPB Q8HR [facility] Last Admin: 03/20/19 05:26 Dose: 100 mls Piperacillin Sod/Tazobactam (Sod 3.375 gm/ Sodium Chloride) 100 mls @ 200 mls/ hr IVPB Q6HR [facility] Last Admin: 03/20/19 12:47 Dose: 100 mls Dextrose/Water (D5w) 1,000 mls @ 0 mls/hr IV .Q0M PRN PRN Reason: Hypoglycemia Potassium Chloride/Sodium Chloride (1/2 Ns W/Kcl 20 Meq) 1,000 mls @ 120 mls/ hr IV .Q8H20M [facility] Last Admin: 03/20/19 09:57 Dose: Not Given Potassium Phosphate 9 mmol/ (Sodium Chloride) 103 mls @ 25 mls/hr IVPB NOW [facility] Stop: 03/20/19 13:38 Last Admin: 03/20/19 10:09 Dose: 103 mls Ibuprofen (Motrin) 400 mg PO Q8H [facility] Last Admin: 03/20/19 12:49 Dose: 400 mg Insulin Human Lispro (Humalog) 0 units SC .MODERATE SLIDING SC PRN PRN Reason: Moderate Correctional Scale Insulin Human Lispro (Humalog) 0 units SC .BEDTIME SLIDING SC PRN PRN Reason: Bedtime Correctional Scale Levothyroxine Sodium (Synthroid) 175 mcg PO 0600 [facility] Last Admin: 03/20/19 05:26 Dose: 175 mcg Morphine Sulfate (Morphine) 2 mg SLOW IVP Q2H PRN PRN Reason: Mild Pain (1-3) Nitroglycerin (Nitrostat) 0.4 mg SL Q5MIN PRN PRN Reason: Chest Pain Ondansetron HCl (Zofran) 4 mg IVP Q6H PRN PRN Reason: Nausea/Vomiting Promethazine HCl (Phenergan) 12.5 mg IM Q4H PRN PRN Reason: Nausea/Vomiting Sodium Chloride (Flush - Normal Saline) 10 ml IVF Q12HR [facility] Last Admin: 03/20/19 08:12 Dose: 10 ml Sodium Chloride (Flush - Normal Saline) 10 ml IVF PRN PRN PRN Reason: Saline Flush
[2019-03-20] MEDS: Ondansetron PF 4 MG/2 ML Vial IVP PRN (23:40)
--- NOTE | 2019-03-21 02:46 | PRG ---
DATE OF SERVICE: 03/20/2019 SUBJECTIVE: This is a 68-year-old female, status post perforated sigmoid diverticulitis with fecal peritonitis, attempted laparoscopy with rapid conversion to exploratory laparotomy, sigmoid colectomy with colostomy creation, drainage of intraabdominal abscess, left salpingo-oophorectomy. The patient had no overnight events. The patient's Hsu catheter was removed today and patient is able to void. The patient's ostomy continues to function. The patient is tolerating a clear liquid diet. OBJECTIVE: VITAL SIGNS: Temperature 97.6, pulse is 84, respirations 16, SpO2 of 92% on room air, blood pressure 149/75. GENERAL: The patient is awake, alert, in no acute distress. HEENT: Normocephalic, atraumatic. Moist mucous membranes. RESPIRATORY: No wheezing, rales, or rhonchi. No respiratory distress. Chest rise symmetrical. CARDIOVASCULAR: Regular rate and rhythm. GASTROINTESTINAL: Abdomen is soft, nontender, nondistended, ostomy with soft stool and ostomy is viable. The patient does have a dressing over her incision with Telfa armida and right side drain continues to drain serosanguineous fluid. MUSCULOSKELETAL: No edema, distal pulses 2+. NEUROLOGIC: No focal deficit. LABORATORY DATA: WBC 24.1, RBC 3.22, hemoglobin 10.0, hematocrit 31.0. Sodium 137, potassium 3.6, chloride 105, carbon dioxide 26, anion gap 10, BUN 11, creatinine 0.53, estimated GFR greater than 90, glucose 94, calcium 7.1, phosphorus 2.0. DIAGNOSTICS: There are no diagnostics to review today. IMPRESSION: 1. Status post laparotomy and Emmanuel's procedure. 2. History of diverticulitis, prediabetes mellitus, hypothyroidism, cerebral vascular accident. PLAN: We will have nurse change abdominal dressing and keep Telfa armida in place. Continue clear liquid diet and plan to increase. We will place the patient on p.o. pain medications and increase to regular diet today. The patient was examined with Dr. Fontaine this morning during rounds. Job ID: [id number]
[2019-03-21] MEDS: Ibuprofen 200 MG TAB PO SCH ×2 (04:00→12:24)
[2019-03-21] MEDS: Acetaminophen 325 MG TAB PO SCH ×6 (04:00→23:39)
[2019-03-21 04:47] LABS: Anion Gap 13 mmol/L (10-20); BUN (Urea Nitrogen) 5 mg/dL (9.8-20.1); Calc. Creatinine Clearance 129 mL/min (70-130); Calcium 7.5 mg/dL (7.8-10.44); Carbon Dioxide 25 mmol/L (23-31); Chloride 103 mmol/L (98-107); Estimated GFR-MDRD Greater than 90; Glucose 104 mg/dL (80-115); Potassium 3.5 mmol/L (3.5-5.1); Sodium 137 mmol/L (136-145)
[2019-03-21 05:01] LABS: Band 11 % (5-11); Eosinophils 1 % (0-10); Hemoglobin 10.2 g/dL (12.0-16.0); Lymphocytes 10 % (21-51); MDiff Complete? YES; Mean Corpuscular HGB CONC 31.9 g/dL (32.0-36.0); Mean Corpuscular Hemoglobin 30.3 pg (27.0-31.0); Monocytes 8 % (0-10); Neutrophil 69 % (42-75); Platelet Count 447 thou/uL (130-400); Platelet Morphology Comment Appears Increased; RBC Distribution Width 13.1 % (11.5-14.5); Reactive Lymphocytes 1 % (0-10); Red Blood Cell (RBC) Count 3.36 mill/uL (4.20-5.40); White Blood Cell (WBC) Count 22.6 thou/uL (4.8-10.8)
[2019-03-21] MEDS: Piperacillin/Tazobactam 3.375 GM in Sodium Chloride 0.9% 100 ML IVPB SCH ×4 (05:21→23:36)
[2019-03-21] MEDS: Levothyroxine 175 MCG TAB PO SCH (05:23)
[2019-03-21] MEDS: metroNIDAZOLE 500 MG in Premix Bag 1 BAG IVPB SCH ×3 (05:23→21:01)
[2019-03-21] MEDS: Bupropion 150 MG XL TAB PO SCH (09:03)
[2019-03-21] MEDS: Famotidine 20 MG TAB PO SCH ×2 (09:03→21:00)
[2019-03-21] MEDS: Enoxaparin Sodium 40 MG/0.4 ML SYRINGE SC SCH (09:03)
[2019-03-21] MEDS: 1/2 NS w/KCL 20 mEq 1,000 ML IV SCH ×3 (09:03→23:40)
[2019-03-21] MEDS: Escitalopram Oxalate 10 mg Tablet PO SCH (09:03)
[2019-03-21] MEDS: Ondansetron PF 4 MG/2 ML Vial IVP PRN (12:29)
--- NOTE | 2019-03-21 14:00 | PDOC.PN ---
- Subjective Encounter Start Date: 03/21/19 Encounter Start Time: 13:59 Subjective: feels better.able to tolerate diet and walk some more -: making stools regularily now. no significant abd pain -: no N/V - Objective Resuscitation Status - Order Detail: 03/14/19 00:03 Resuscitation Status Routine Resuscitation Status: FULL: Full Resuscitation Discussed with: discussed w pt MAR Reviewed: Yes Vital Signs & Weight: Vital Signs (12 hours) Temp Pulse Resp BP Pulse Ox 03/21/19 10:54 98 F 82 14 148/80 H 94 L 03/21/19 07:27 97.7 F 77 16 150/84 H 92 L 03/21/19 04:00 97.6 F 82 20 150/77 H 95 Weight Admit Weight 172 lb 4.8 oz Weight 172 lb 4.8 oz I&O: 03/20/19 03/21/19 03/22/19 06:59 06:59 06:59 Intake Total 3690 3178 Output Total 1235 785 Balance 1765 5843 Result Diagrams: 03/21/19 04:05 03/21/19 04:05 Additional Labs: Accuchecks 03/21/19 03/21/19 03/20/19 10:55 05:10 20:22 POC Glucose 91 102 92 03/20/19 15:25 POC Glucose 97 Microbiology 03/13/19 21:54 Venous blood - Right Hand Blood Culture - Final NO GROWTH IN 5 DAYS 03/13/19 21:54 Venous blood - Left Hand Blood Culture - Final NO GROWTH IN 5 DAYS 03/13/19 17:32 Urine clean catch Urine Culture - Final NO GROWTH AT 36 HOURS Phys Exam - Physical Examination Constitutional: NAD HEENT: PERRLA, moist MMs, sclera anicteric, oral pharynx no lesions Neck: no nodes, no JVD, supple, full ROM Respiratory: no wheezing, no rales, no rhonchi, clear to auscultation bilateral Cardiovascular: RRR, no significant murmur Gastrointestinal: soft, non-tender, no distention, positive bowel sounds more formed stools in ostomy . Musculoskeletal: no edema, pulses present Neurological: non-focal, normal sensation, moves all 4 limbs Psychiatric: normal affect, A&O x 3 Skin: no rash Dx/Plan (1) Perforation of sigmoid colon due to diverticulitis Code(s): K57.20 - DVTRCLI OF LG INT W PERFORATION AND ABSCESS W/O BLEEDING Status: Acute Comment: S/P colostomy with washout 03/17/19. cont IV ABx. on zosyn and metronidazole Post-op ileus (2) Oliguria Code(s): R34 - ANURIA AND OLIGURIA Status: Acute Comment: Improved Renal Fx Normal. Suspect Hypovolemia .monitor (3) Leucocytosis Code(s): D72.829 - ELEVATED WHITE BLOOD CELL COUNT, UNSPECIFIED Status: Acute Comment: Likely reactive from abdominal surgery recently on 03/17/19.monitor. on ABx for diverticulitis (4) DM type 2 (diabetes mellitus, type 2) Status: Chronic Qualifiers: Diabetes mellitus exterminator helper insulin use: without group home use Diabetes mellitus complication status: with unspecified complications Qualified Code(s) : E11.8 - Type 2 diabetes mellitus with unspecified complications Comment: cont ISS w accuchecks (5) Dyslipidemia Code(s): E78.5 - HYPERLIPIDEMIA, UNSPECIFIED Status: Chronic (6) HTN (hypertension) Code(s): I10 - ESSENTIAL (PRIMARY) HYPERTENSION Status: Chronic Qualifiers: Hypertension type: essential hypertension Qualified Code(s): I10 - Essential (primary) hypertension Comment: controlled. cont home meds of Losartan once cleared to take PO. reviewed (7) Hypothyroidism Code(s): E03.9 - HYPOTHYROIDISM, UNSPECIFIED Status: Chronic Qualifiers: Hypothyroidism type: unspecified Qualified Code(s): E03.9 - Hypothyroidism , unspecified Comment: cont levothyroxine - Plan continue antibiotics, respiratory therapy, incentive spirometry, DVT proph w/ SCDs cont IV ABx. post-op care -: Dc when OK w GS. may need some HH -: HD stable -: wbc trending down. reactive leucocytosis -: am labs * .Avoid Ibuprofen Review of Systems - Review of Systems Constitutional: negative: fever, chills, sweats, weakness, malaise, other ENT: negative: Ear Pain, Ear Discharge, Nose Pain, Nose Discharge, Nose Congestion, Mouth Pain, Mouth Swelling, Throat Pain, Throat Swelling, Other Respiratory: negative: Cough, Dry, Shortness of Breath, Hemoptysis, SOB with Excertion, Pleuritic Pain, Sputum, Wheezing Cardiovascular: negative: chest pain, palpitations, orthopnea, paroxysmal nocturnal dyspnea, edema, light headedness, other Gastrointestinal: negative: Nausea, Vomiting, Abdominal Pain, Diarrhea, Constipation, Melena, Hematochezia, Other Genitourinary: negative: Dysuria, Frequency, Incontinence, Hematuria, Retention , Other Musculoskeletal: negative: Neck Pain, Shoulder Pain, Arm Pain, Back Pain, Hand Pain, Leg Pain, Foot Pain, Other Neurological: negative: Weakness, Numbness, Incoordination, Change in Speech, Confusion, Seizures, Other - Medications/Allergies Allergies/Adverse Reactions: Allergies Allergy/AdvReac Type Severity Reaction Status Date / Time Sulfa (Sulfonamide Allergy Severe Verified 03/13/19 21:23 Antibiotics) sulfamethoxazole Allergy Severe Verified 03/13/19 21:23 [From Bactrim] trimethoprim [From Bactrim] Allergy Severe Verified 03/13/19 21:23 Medications: Current Medications Acetaminophen (Tylenol) 650 mg PO Q4H [facility] Last Admin: 03/21/19 12:24 Dose: 650 mg Hydrocodone Bitart/Acetaminophen ([place] 7.5/325) 1 tab PO Q4H PRN PRN Reason: Moderate Pain (4-6) Last Admin: 03/21/19 13:24 Dose: 1 tab Hydrocodone Bitart/Acetaminophen ([place] 7.5/325) 2 tab PO Q4H PRN PRN Reason: Severe Pain (7-10) Last Admin: 03/20/19 05:47 Dose: 2 tab Albuterol/Ipratropium (Duoneb) 3 ml NEB Q4H PRN PRN Reason: Wheezing Bupropion HCl (Wellbutrin Xl) 300 mg PO DAILY [facility] Last Admin: 03/21/19 09:03 Dose: 300 mg Calcium Carbonate (Tums) 1,000 mg PO Q4H PRN PRN Reason: Heartburn or Indigestion Last Admin: 03/20/19 11:11 Dose: 1,000 mg Clonidine (Catapres) 0.1 mg PO Q4H PRN PRN Reason: SBP >160 ____ Dextrose/Water (Dextrose 50%) 25 gm SLOW IVP PRN PRN PRN Reason: Hypoglycemia Enoxaparin Sodium (Lovenox) 40 mg SC 0900 [facility] Last Admin: 03/21/19 09:03 Dose: 40 mg Escitalopram Oxalate (Lexapro) 10 mg PO DAILY [facility] Last Admin: 03/21/19 09:03 Dose: 10 mg Famotidine (Pepcid) 20 mg PO BID [facility] Last Admin: 03/21/19 09:03 Dose: 20 mg Glucagon (Glucagon) 1 mg IM PRN PRN PRN Reason: Hypoglycemia Guaifenesin (Robitussin Sf) 200 mg PO Q4H PRN PRN Reason: Cough Hydralazine HCl (Apresoline) 10 mg SLOW IVP Q4H PRN PRN Reason: SBP > 170 or DBP > 100 Metronidazole 500 mg/ Device 100 mls @ 100 mls/hr IVPB Q8HR [facility] Last Admin: 03/21/19 05:23 Dose: 100 mls Piperacillin Sod/Tazobactam (Sod 3.375 gm/ Sodium Chloride) 100 mls @ 200 mls/ hr IVPB Q6HR [facility] Last Admin: 03/21/19 12:25 Dose: 100 mls Dextrose/Water (D5w) 1,000 mls @ 0 mls/hr IV .Q0M PRN PRN Reason: Hypoglycemia Potassium Chloride/Sodium Chloride (1/2 Ns W/Kcl 20 Meq) 1,000 mls @ 120 mls/ hr IV .Q8H20M [facility] Last Admin: 03/21/19 09:03 Dose: Not Given Ibuprofen (Motrin) 400 mg PO Q8H [facility] Last Admin: 03/21/19 12:24 Dose: 400 mg Insulin Human Lispro (Humalog) 0 units SC .MODERATE SLIDING SC PRN PRN Reason: Moderate Correctional Scale Insulin Human Lispro (Humalog) 0 units SC .BEDTIME SLIDING SC PRN PRN Reason: Bedtime Correctional Scale Levothyroxine Sodium (Synthroid) 175 mcg PO 0600 [facility] Last Admin: 03/21/19 05:23 Dose: 175 mcg Morphine Sulfate (Morphine) 2 mg SLOW IVP Q2H PRN PRN Reason: Mild Pain (1-3) Nitroglycerin (Nitrostat) 0.4 mg SL Q5MIN PRN PRN Reason: Chest Pain Ondansetron HCl (Zofran) 4 mg IVP Q6H PRN PRN Reason: Nausea/Vomiting Last Admin: 03/21/19 12:29 Dose: 4 mg Promethazine HCl (Phenergan) 12.5 mg IM Q4H PRN PRN Reason: Nausea/Vomiting Sodium Chloride (Flush - Normal Saline) 10 ml IVF Q12HR [facility] Last Admin: 03/21/19 09:03 Dose: 10 ml Sodium Chloride (Flush - Normal Saline) 10 ml IVF PRN PRN PRN Reason: Saline Flush
--- NOTE | 2019-03-21 16:19 | PRG ---
DATE OF SERVICE: 03/21/2019 This is Cathy Nolasco NP dictating a report for Reggie Fontaine DO. SUBJECTIVE: This is a 68-year-old female, status post perforated sigmoid diverticulitis with fecal peritonitis, attempted laparoscopy with rapid conversion to exploratory laparotomy, sigmoid colectomy with colostomy creation, drainage of intraabdominal abscesses, left salpingo-oophorectomy. The patient had no overnight events. The patient's pain seems to be well controlled. The patient is tolerating a regular diet. OBJECTIVE: VITAL SIGNS: Temperature 97.7, pulse 77, respirations 16, SpO2 of 94% on room air, blood pressure 150/84. GENERAL: The patient is awake and alert, in no distress. HEENT: Normocephalic and atraumatic. Moist mucous membranes. RESPIRATORY: No respiratory distress. Chest is symmetrical and nonlabored respirations. CARDIOVASCULAR: Regular rate and rhythm. GASTROINTESTINAL: Abdomen is soft, nontender, nondistended, ostomy with soft stool and ostomy is viable. MUSCULOSKELETAL: No edema, distal pulses 2+. NEUROLOGIC: No focal deficit. LABORATORY DATA: WBC 22.6, RBC 3.36, hemoglobin 10.2, hematocrit 31.9, and platelets 447. Sodium 137, potassium 3.5, chloride 103, carbon dioxide 25, BUN 5, creatinine 0.50, estimated GFR greater than 90, glucose 104, and calcium 7.5. IMPRESSION: 1. Status post laparotomy and Emmanuel procedure. 2. History of diverticulitis. 3. Prediabetes mellitus. 4. Hypothyroidism. 5. Cerebrovascular accident. PLAN: We will continue supportive care. We will continue p.o. pain regimen. We will continue the patient's regular diet as tolerated. The patient was examined with Dr. Fontaine during morning rounds. Job ID: [id number]
[2019-03-21] MEDS: HYDROcodone/Acetaminophen 7.5/325 mg Tablet PO PRN (20:58)
[2019-03-22] MEDS: Acetaminophen 325 MG TAB PO SCH ×3 (04:35→11:36)
[2019-03-22] MEDS: HYDROcodone/Acetaminophen 7.5/325 mg Tablet PO PRN ×2 (04:36→11:35)
[2019-03-22] MEDS: Piperacillin/Tazobactam 3.375 GM in Sodium Chloride 0.9% 100 ML IVPB SCH ×2 (05:07→11:36)
[2019-03-22] MEDS: Levothyroxine 175 MCG TAB PO SCH (05:09)
[2019-03-22] MEDS: metroNIDAZOLE 500 MG in Premix Bag 1 BAG IVPB SCH ×2 (05:11→13:19)
[2019-03-22 05:59] LABS: Band 3 % (5-11); Eosinophils 1 % (0-10); Hemoglobin 9.8 g/dL (12.0-16.0); Lymphocytes 10 % (21-51); MDiff Complete? YES; Mean Corpuscular HGB CONC 32.3 g/dL (32.0-36.0); Mean Corpuscular Hemoglobin 30.6 pg (27.0-31.0); Mean Corpuscular Volume 94.5 fL (78.0-98.0); Metamyelocyte 1 % (0-0); Monocytes 5 % (0-10); Myelocyte 2 % (0-0); Neutrophil 78 % (42-75); Platelet Count 476 thou/uL (130-400); Platelet Morphology Comment Appears Increased; White Blood Cell (WBC) Count 20.9 thou/uL (4.8-10.8)
[2019-03-22 06:08] LABS: Anion Gap 13 mmol/L (10-20); BUN (Urea Nitrogen) Less than 4 mg/dL (9.8-20.1); Calc. Creatinine Clearance 137 mL/min (70-130); Calcium 7.5 mg/dL (7.8-10.44); Carbon Dioxide 26 mmol/L (23-31); Chloride 100 mmol/L (98-107); Estimated GFR-MDRD Greater than 90; Glucose 95 mg/dL (80-115); Potassium 3.2 mmol/L (3.5-5.1); Sodium 136 mmol/L (136-145)
[2019-03-22] MEDS: Famotidine 20 MG TAB PO SCH (08:30)
[2019-03-22] MEDS: Bupropion 150 MG XL TAB PO SCH (08:30)
[2019-03-22] MEDS: Enoxaparin Sodium 40 MG/0.4 ML SYRINGE SC SCH (08:30)
[2019-03-22] MEDS: Escitalopram Oxalate 10 mg Tablet PO SCH (08:31)
[2019-03-22] MEDS ORDERED: Potassium Chloride 40 MEQ in Premix Bag 1 BAG IVPB SCH (09:00)
[2019-03-22] MEDS: Potassium Chloride 20 MEQ in Premix Bag 1 BAG IVPB SCH ×2 (09:20→11:29)
[2019-03-22] MEDS: 1/2 NS w/KCL 20 mEq 1,000 ML IV SCH (09:58)
[2019-03-22 14:29] VITALS: BP 152/88; TEMP 98.3
--- NOTE | 2019-03-22 20:29 | DIS ---
DATE OF ADMISSION: 03/13/2019 DATE OF DISCHARGE: 03/22/2019 CONDITION: At the time of discharge, stable and improved. DISCHARGE DISPOSITION: Home with [facility]. PRIMARY CARE PHYSICIAN: Sascha Rosario MD. DISCHARGE DIAGNOSES: 1. Diverticulitis of the sigmoid colon with perforation and abscess, status post laparotomy and colostomy. 2. Diabetes mellitus type 2. 3. Dyslipidemia. 4. Hypertension. 5. Hypothyroidism. DISCHARGE MEDICATIONS: As per the General Surgery. She is going home on ciprofloxacin and metronidazole. Ciprofloxacin 500 mg p.o. b.i.d. and metronidazole 500 mg p.o. t.i.d. Resume home medications as follows: 1. Metformin 500 mg at bedtime. 2. Provera 2.5 mg daily. 3. Bupropion XL 300 mg daily. 4. Mevacor 20 mg daily. 5. Losartan 100 mg daily. 6. Levothyroxine 175 mcg daily. 7. Estradiol 0.5 mg daily. 8. Lexapro 10 mg daily. 9. Florastor 250 mg daily. 10. Zofran 4 mg as needed every 4 hours. IN-HOUSE CONSULTATION: General Surgery, Dr. Ellis and Dr. Aly. PROCEDURES DONE IN THE HOSPITAL: 1. CT scan of the abdomen and pelvis done in the outside emergency room prior to presentation showed findings of sigmoid diverticulitis with contained perforation in the mesentery. 2. Repeat CT scan of the abdomen and pelvis done in our facility on 03/16/2019, which shows worsening free intraperitoneal gas and fluid from the uncontained sigmoid perforation. 3. Attempted laparoscopy with rapid conversion to exploratory laparotomy with sigmoid colectomy with colostomy creation and drainage of intraabdominal abscess with left salpingo-oophorectomy on 03/17/2019, by Dr. Aly. 4. Left subclavian line placement on the same day by Dr. Aly. HISTORY OF PRESENTING ILLNESS: Ms. Barraza is a pleasant 68-year-old female with past medical history of diabetes, hypertension, and hypothyroidism as well as diverticulitis, who presented to the emergency room with complaints of abdominal pain and vomiting. She initially presented to outside emergency room in [place], where a CT scan showed some free air inflammation of the descending colon in the sigmoid area with question of perforation. She was hemodynamically stable upon presentation and was started on IV fluids, n.p.o. status and IV antibiotics and General Surgery was consulted. She had leukocytosis with WBCs of 20,000. She was seen in the ER by General Surgery, Dr. Ellis and was admitted to surgical floor on Medicine Team. Please see admission history and physical dictated by myself on 03/14/2019, for full details. HOSPITAL COURSE: The patient was followed clinically and medical management was attempted but failed. She was eventually taken to OR for worsening intraperitoneal air on repeat CT scan as her leukocytosis improved slowly. Postop, she was monitored for several days. She has a colostomy created. Eventually, the drain was removed. She was eating a regular diet and ambulating in the hallways without issues. She was afebrile and leukocytosis has been improving. As of this morning, she has been cleared to discharge from General Surgery standpoint and medications prescriptions were provided by Dr. Aly. She has been set up with [facility] for ostomy care. She was seen and examined prior to discharge. PHYSICAL EXAMINATION: VITAL SIGNS: This morning, temperature 98.2, pulse of 81, respirations 18, saturating 92% on room air, blood pressure 149/83. GENERAL: No acute distress. Awake, alert, and oriented x3. HEENT: Mucous membranes moist and pink. ABDOMEN: Well-healing abdominal incision. She has good bowel sounds in all 4 quadrants. Her ostomy bag has liquid and semisolid soft stools. CHEST: Clear to auscultation bilaterally. HEART: Rate and rhythm regular. FOLLOWUP: She is instructed to follow up with General Surgery in 3 weeks and with her primary care physician in 1 to 2 weeks. TIME SPENT: Total time spent in the discharge, 32 minutes. Job ID: [id number]
--- NOTE | 2019-03-23 00:53 | DIS ---
DATE OF ADMISSION: 03/13/2019 DATE OF DISCHARGE: 03/22/2019 ADMISSION DIAGNOSIS: Diverticulitis with microperforation. DISCHARGE DIAGNOSIS: Progressive diverticulitis with eventual fecal peritonitis. PROCEDURES PERFORMED: Exploratory laparotomy with sigmoid colectomy and colostomy creation (Emmanuel's procedure) with drainage of intraabdominal abscess, left salpingo-oophorectomy, placement of left subclavian central line. ADMISSION HISTORY: The patient is a 68-year-old white female. She presented to the hospital with abdominal pain and CT findings consistent with diverticulitis. She was treated conservatively initially. She appeared to have minimal intraperitoneal disease. She seemed to respond to IV antibiotics over the first couple of days. By the third day, however, it was obvious that she had taken a turn for the worse and developed progressive abdominal distention and peritonitis. She was taken to the operating room by myself on 03/17/2019. Laparoscopy was considered, but converted quickly to a laparotomy. She had severe disease involving her entire sigmoid colon with feculent peritonitis. The disease segment of her colon was removed and she was given a colostomy. Drain was placed as well. She has done well since surgery. Today is postoperative day #5. She is tolerating regular diet and has good ostomy function. She has been afebrile with normal vital signs. She has been ambulating and voiding well. Her white blood cell count remains elevated at 20.9 today. It is slowly trending downwards, then she still has a left shift. She has been maintained on IV antibiotics with both Flagyl and Zosyn since her surgery. Cultures were not obtained at the time of surgery as there was remy stool in the abdomen. At this time, she appears to be stable for discharge. She is tolerating her diet with good ostomy function. Her drain was removed today. Her Telfa armida were removed today and she was instructed in Wound Care. Home Health Nursing has already been arranged to help her with ostomy care while at home. She has been discharged with a prescription for tramadol, Cipro, and Flagyl. I will see her back in my office in about a week for staple removal. She was given my card and encouraged to call me if she has any problems, concerns, or questions in the interim. Job ID: [id number]
== END 2019-03-22 14:30 | disposition home health service (06) | DRG 329 ==
LOC: ERS 16:58 → T4-A 18:58 → SURG A 03-17 19:14
PROVIDERS: ADMIT Family Medicine; ATTEND Family Medicine
PROC: 0UT10ZZ Resection of Left Ovary, Open Approach (ICD-10-PCS; principal; 2019-03-17)
PROC: 0DBN0ZZ Excision of Sigmoid Colon, Open Approach (ICD-10-PCS; 2019-03-17)
PROC: 0WJG4ZZ Inspection of Peritoneal Cavity, Percutaneous Endoscopic Approach (ICD-10-PCS; 2019-03-17)
PROC: 0D1N0Z4 Bypass Sigmoid Colon to Cutaneous, Open Approach (ICD-10-PCS; 2019-03-17)
PROC: 0UT60ZZ Resection of Left Fallopian Tube, Open Approach (ICD-10-PCS; 2019-03-17)
PROC: 05H633Z Insertion of Infusion Device into Left Subclavian Vein, Percutaneous Approach (ICD-10-PCS; 2019-03-17)
DX: K57.20 Diverticulitis of large intestine with perforation and abscess without bleeding (principal); K65.8 Other peritonitis; F41.9 Anxiety disorder, unspecified; F32.9 Major depressive disorder, single episode, unspecified; I10 Essential (primary) hypertension; E11.9 Type 2 diabetes mellitus without complications; F39 Unspecified mood [affective] disorder; E03.9 Hypothyroidism, unspecified; R34 Anuria and oliguria; D72.829 Elevated white blood cell count, unspecified; Z90.710 Acquired absence of both cervix and uterus; Z88.2 Allergy status to sulfonamides; Z86.73 Personal history of transient ischemic attack (TIA), and cerebral infarction without residual deficits; Z53.31 Laparoscopic surgical procedure converted to open procedure
CPT/HCPCS: 36415; 36416; 71045; 74177; 80048; 81003; 81015; 83735; 84100; 85007; 85025; 85027; 87086; 88305; 88307; 99285; J0131; J1100; J1650; J1885; J1940; J2001; J2270; J2405; J2543; J2704; J3010; J3480; J3490; J7121; Q9966; Q9967; S0028

== ENCOUNTER 2019-03-23 07:33 | Inpatient (IN) | payer MEDICARE, OTHER ==
[2019-03-23 08:35] LABS: Hemoglobin 11.8 g/dL (12.0-16.0); Mean Corpuscular HGB CONC 32.9 g/dL (32.0-36.0); Mean Corpuscular Hemoglobin 30.8 pg (27.0-31.0); Mean Corpuscular Volume 93.6 fL (78.0-98.0); Mean Platelet Volume 7.9 fL (7.4-10.4); Platelet Count 586 thou/uL (130-400); RBC Distribution Width 13.3 % (11.5-14.5); Red Blood Cell (RBC) Count 3.84 mill/uL (4.20-5.40); White Blood Cell (WBC) Count 26.5 thou/uL (4.8-10.8)
[2019-03-23] MEDS ORDERED: Iopamidol 370 76% 100 ML VIAL ONE (08:35)
[2019-03-23] MEDS ORDERED: Iopamidol 370 76% 50 ML VIAL FS ONE (08:35)
[2019-03-23 08:48] LABS: ALT (SGPT) 9 U/L (8-55); AST (SGOT) 16 U/L (5-34); Albumin 2.4 g/dL (3.4-4.8); Alkaline Phosphatase 111 U/L (40-150); Anion Gap 15 mmol/L (10-20); BUN (Urea Nitrogen) Less than 4 mg/dL (9.8-20.1); Bilirubin, Total 0.3 mg/dL (0.2-1.2); Calc. Creatinine Clearance 0 mL/min (70-130); Calcium 7.9 mg/dL (7.8-10.44); Carbon Dioxide 27 mmol/L (23-31); Chloride 95 mmol/L (98-107); Estimated GFR-MDRD Greater than 90; Globulin 3.6 g/dL (2.4-3.5); Glucose 116 mg/dL (80-115); Lipase 71 U/L (8-78); Potassium 3.3 mmol/L (3.5-5.1); Sodium 134 mmol/L (136-145)
[2019-03-23] MEDS ORDERED: Pantoprazole 40 MG VIAL ONE (09:30)
[2019-03-23] MEDS ORDERED: Ondansetron PF 4 MG/2 ML Vial ONE (09:35)
[2019-03-23 09:41] LABS: #Basophils 0.1 thou/uL (0.0-0.2); #Eosinphils 0.3 thou/uL (0.0-0.7); #Lymphocytes 1.7 thou/uL (1.20-3.40); #Monocytes 1.8 thou/uL (0.11-0.59); #Neutrophils 22.6 thou/uL (1.40-6.50); %Basophils 0.3 % (0.0-1.0); %Eosinophils 1.3 % (0.0-10.0); %Lymphocytes 6.3 % (21.0-51.0); %Monocytes 6.8 % (0.0-10.0); %Neutrophils 85.3 % (42.0-75.0); Band 1 % (5-11); Lymphocytes 8 % (21-51); MDiff Complete? YES; Monocytes 6 % (0-10); Myelocyte 2 % (0-0); Neutrophil 82 % (42-75); Platelet Morphology Comment Appears Increased; Polychromasia SLIGHT = 2-3 cells (100X) (0-2/hpf); Reactive Lymphocytes 1 % (0-10); Stomatocytes SLIGHT = 2-5 cells (100X) (0-1/hpf)
[2019-03-23] MEDS ORDERED: Morphine 4 MG/ML VIAL ONE (10:07)
--- NOTE | 2019-03-23 10:39 | CT ---
EXAM: CT ABDOMEN AND PELVIS HISTORY: Coffee-ground emesis. Previous colostomy 6 days ago. COMPARISON: 03/16/2019 Procedure: Multiple contiguous axial images were obtained and a CT of the abdomen and pelvis with IV contrast. C oronal reformats were performed. FINDINGS: Lower Chest: Small right-sided pleural effusion. Trace left-sided pleural effusion. Adjacent lung par enchymal opacities likely represent atelectasis or aspiration. Vessels: Atherosclerosis of a normal caliber aorta. Heart: Normal size. No significant pericardial fluid. Abdomen: Portal vein:Patent Gallbladder: No calcified gallstones. Normal caliber wall. Liver: within normal limits. Pancreas: within normal limits. Spleen: within normal limits. Adrenals: within normal limits. Kidneys: Symmetric enhancement. Bilaterally no obstructive uropathy. Peritoneum: There are small pockets of free air within the abdominal mesentery. Additionally, there i s evidence of fluid tracking along the right hemiabdomen. Pockets of fluid have some incomplete enhancement and do not appear to be well formed at this time. No evidence of air attenuation. Postope rative fluid changes are favored. Early/developing infected fluid collection cannot be completely excluded surveillance is recommended. Bowel: Gastric mucosa is unremarkable. Multiple normal caliber small bowel loops. Ileocecal junction is normal. Normal caliber appendix. Cecum, ascending colon, transverse colon and the splenic flexure are normal. There is a colostomy in the left lower quadrant with adjacent stranding. Nnia' s pouch is identified and is unremarkable. Mesentery and Retroperitoneum: No enlarged mesenteric or retroperitoneal lymph nodes. Abdominal Wall: Colostomy in the left hemiabdomen is noted. Midline changes fat postsurgical changes are identified. Pelvis: Reproductive Organs: Previous hysterectomy. Pelvis: within normal limits. Bladder: within normal limits. Bones: No lytic or blastic lesions. IMPRESSION: 1. Findings compatible with recent surgery for a partial colectomy and left-sided colostomy. 2. Small pockets of fluid and air in the abdomen are presumed to be iatrogenic. Some pockets of fluid have a incompletely formed peripheral enhancing wall. Early infected fluid collection cannot be excluded. A well-formed abscess is not appreciated at this time. Continued surveillance limited. 3. Bilateral pleural effusions with consolidation of the lung parenchyma and atelectasis or aspiratio n.
[2019-03-23] MEDS ORDERED: HYDROcodone/Acetaminophen 5/325 mg Tablet ONE (12:54)
[2019-03-23 15:45] VITALS: BMI 26.6
[2019-03-23] MEDS ORDERED: Ondansetron ODT 4 MG TAB PO PRN ×2 (16:29)
[2019-03-23] MEDS: traMADol HCl 50 MG TAB PO SCH ×2 (17:41→23:19)
[2019-03-23] MEDS: metFORMIN 500 MG TAB PO SCH (17:42)
[2019-03-23] MEDS: Piperacillin/Tazobactam 3.375 GM in Sodium Chloride 0.9% 100 ML IVPB SCH ×2 (17:42→23:19)
[2019-03-23] MEDS: Losartan 25 MG TAB PO SCH (20:14)
[2019-03-23] MEDS: Lovastatin 20 MG TAB PO SCH (20:15)
--- NOTE | 2019-03-24 02:03 | HP ---
HISTORY OF PRESENT ILLNESS: Ms. Barraza returned to the emergency room today after she was discharged yesterday. She is status post Emmanuel procedure for perforated diverticulitis. Her intraabdominal drain was removed prior to discharge. She notes that she had been having copious urine output prior to her discharge and at home. Although she had had good ostomy output prior to her discharge, she noted that this morning she had had no colostomy output for about 24 hours. She apparently vomited once or twice at home, became concerned about this constellation of symptoms and returned to the emergency room. Her medical history, surgical history, etc., is unchanged from my recent consultation. PHYSICAL EXAMINATION: VITAL SIGNS: She is afebrile. Pulse is 80 and regular. Blood pressure is 150/80. GENERAL: She is in good spirits. She is alert and oriented x3. She denies any significant pain. HEAD, EYES, EARS, NOSE, AND THROAT: Unremarkable. NECK: Supple. LUNGS: Clear to auscultation. CARDIAC: Regular rate and rhythm. ABDOMEN: Soft with no focal tenderness. Ostomy has a very good output of soft stool currently. Drain site in the right abdomen is healing appropriately. Her incision has some drainage, some of which may be early purulent material. The armida were removed from her wound yesterday. LABORATORY DATA: Her white blood cell count had gone up from 20.9 yesterday to 26.5 today. Hemoglobin is 11.8 today. Chemistry reveals minor electrolyte abnormalities. Her albumin is low at 2.4. X-ray, CT scan of the abdomen and pelvis was obtained. There is a small amount of fluid in the abdomen. There are small bilateral pleural effusions and some atelectasis. Ostomy appears to be in good position and there is no evidence of bowel obstruction. ASSESSMENT: The patient had vomiting for unreason this morning. She has leukocytosis and etiology could be related to abdominal wound or possibly related to her atelectasis. I will encourage ambulation and incentive spirometry. I will resume her diet. Her family is concerned about her ability to care for herself at home since she is by herself. They have requested consideration of care home facility placement. Case management consultation will be initiated for this purpose. Job ID: [id number]
[2019-03-24] MEDS: traMADol HCl 50 MG TAB PO SCH (05:34)
[2019-03-24] MEDS: Levothyroxine 175 MCG TAB PO SCH (05:34)
[2019-03-24] MEDS: Piperacillin/Tazobactam 3.375 GM in Sodium Chloride 0.9% 100 ML IVPB SCH ×3 (05:34→17:39)
[2019-03-24 06:33] LABS: Band 4 % (5-11); Hemoglobin 11.1 g/dL (12.0-16.0); Large Platelets SLIGHT; Lymphocytes 9 % (21-51); MDiff Complete? YES; Mean Corpuscular HGB CONC 32.2 g/dL (32.0-36.0); Mean Corpuscular Hemoglobin 30.2 pg (27.0-31.0); Mean Corpuscular Volume 94.1 fL (78.0-98.0); Mean Platelet Volume 8.1 fL (7.4-10.4); Monocytes 9 % (0-10); Neutrophil 78 % (42-75); Platelet Count 677 thou/uL (130-400); Platelet Morphology Comment Appears Increased; RBC Distribution Width 13.4 % (11.5-14.5); Red Blood Cell (RBC) Count 3.68 mill/uL (4.20-5.40); White Blood Cell (WBC) Count 25.4 thou/uL (4.8-10.8)
[2019-03-24] MEDS: Estradiol 1 MG TAB PO SCH (08:25)
[2019-03-24] MEDS: Escitalopram Oxalate 10 mg Tablet PO SCH (08:25)
[2019-03-24] MEDS: Saccharomyces boulardii 250 MG CAP PO SCH (08:25)
[2019-03-24] MEDS: Bupropion 150 MG XL TAB PO SCH (08:25)
[2019-03-24] MEDS: Acetaminophen 500 MG TAB PO PRN ×2 (10:21→18:40)
[2019-03-24] MEDS: traMADol HCl 50 MG TAB PO PRN ×2 (10:22→17:38)
[2019-03-24] MEDS: medroxyPROGESTERone Acetate 2.5 MG TAB PO SCH (11:13)
[2019-03-24] MEDS: metFORMIN 500 MG TAB PO SCH (17:39)
[2019-03-24] MEDS: Losartan 25 MG TAB PO SCH (20:24)
[2019-03-24] MEDS: Lovastatin 20 MG TAB PO SCH (20:25)
[2019-03-25] MEDS: Piperacillin/Tazobactam 3.375 GM in Sodium Chloride 0.9% 100 ML IVPB SCH ×4 (00:45→17:52)
[2019-03-25] MEDS: Levothyroxine 175 MCG TAB PO SCH (05:33)
--- NOTE | 2019-03-25 06:57 | PRG ---
DATE OF SERVICE: 03/24/2019 SUBJECTIVE: Ms. Barraza is postoperative day #7 from her laparotomy and Emmanuel procedure for perforated diverticulitis. She had been discharged to home, but returned secondary to inability to care for self at home. Since returning yesterday, she has been fine. She is tolerating her diet uneventfully. Her ostomy has been working well. Per her request, a shelter consultation was obtained. She has no current complaints. She is ambulating well. She has been tolerating her full liquid diet. OBJECTIVE: VITAL SIGNS: On examination, she has been afebrile with max temperature of 98.4, her pulse is in the 70s and regular, blood pressure is 150/70. LUNGS: Clear to auscultation. ABDOMEN: Benign. Ostomy is functioning well. She still has some drainage from her midline abdominal incision. Telfa armida were removed. Bowel sounds are present and normoactive. LABORATORY DATA: Her laboratory studies reveal that her white blood cell count is still elevated at 25.4, hemoglobin is 11.1. ASSESSMENT: She is doing well. She will be continued on Zosyn. I may have to consider on opening her wound. Await shelter placement hopefully in the next day or 2. Job ID: [id number]
[2019-03-25 07:22] LABS: #Basophils 0.1 thou/uL (0.0-0.2); #Eosinphils 0.2 thou/uL (0.0-0.7); #Lymphocytes 1.5 thou/uL (1.20-3.40); #Monocytes 1.7 thou/uL (0.11-0.59); #Neutrophils 17.1 thou/uL (1.40-6.50); %Basophils 0.4 % (0.0-1.0); %Eosinophils 0.9 % (0.0-10.0); %Lymphocytes 7.5 % (21.0-51.0); %Monocytes 8.1 % (0.0-10.0); %Neutrophils 83.2 % (42.0-75.0); Hemoglobin 10.4 g/dL (12.0-16.0); Mean Corpuscular HGB CONC 34.2 g/dL (32.0-36.0); Mean Corpuscular Hemoglobin 31.7 pg (27.0-31.0); Mean Corpuscular Volume 92.8 fL (78.0-98.0); Mean Platelet Volume 7.8 fL (7.4-10.4); Platelet Count 651 thou/uL (130-400); RBC Distribution Width 13.2 % (11.5-14.5); Red Blood Cell (RBC) Count 3.27 mill/uL (4.20-5.40); White Blood Cell (WBC) Count 20.5 thou/uL (4.8-10.8)
[2019-03-25] MEDS: Estradiol 1 MG TAB PO SCH (08:28)
[2019-03-25] MEDS: Escitalopram Oxalate 10 mg Tablet PO SCH (08:28)
[2019-03-25] MEDS: medroxyPROGESTERone Acetate 2.5 MG TAB PO SCH (08:29)
[2019-03-25] MEDS: Bupropion 150 MG XL TAB PO SCH (08:29)
[2019-03-25] MEDS: Saccharomyces boulardii 250 MG CAP PO SCH (08:29)
[2019-03-25] MEDS: traMADol HCl 50 MG TAB PO PRN ×2 (09:40→21:49)
[2019-03-25] MEDS: metFORMIN 500 MG TAB PO SCH (17:52)
--- NOTE | 2019-03-25 21:13 | PRG ---
DATE OF SERVICE: 03/25/2019 SUBJECTIVE: Ms. Barraza is postoperative day #8 from her laparotomy with Emmanuel's procedure for perforated diverticulitis. She was readmitted to the hospital on the . She has not vomited since her readmission. She has not been on IV fluids since her readmission. She does continue on IV antibiotics with the Zosyn. She notes she has minimal appetite, but has not vomited. She still has good ostomy function and ostomy output. She is ambulating regularly. She notes that she is incontinent of urine. OBJECTIVE: VITAL SIGNS: On examination, she is afebrile. Pulse is in the 70s. Blood pressure 150/70. LUNGS: Clear to auscultation. ABDOMEN: Soft, nontender, and nondistended. Her midline incision continues to drain more serosanguinopurulent material that I am comfortable with. I therefore opened the incision at 3 locations. I did not encounter any remy purulence within the wound. It was packed with peroxide moistened gauze. Most of the wound remains closed. Cultures were obtained before placing the peroxide. ASSESSMENT AND PLAN: In summary, she is certainly stable following her surgery. Per family and patient's requests, we were still awaiting [facility] facility placement. We will continue the wound care as these 3 areas will have to heal in by secondary intention. Occupational therapy and physical therapy consults will be obtained and hopefully she will be ready for [facility] facility transfer tomorrow. Job ID: [id number]
[2019-03-25] MEDS: Losartan 25 MG TAB PO SCH (21:48)
[2019-03-25] MEDS: Lovastatin 20 MG TAB PO SCH (21:49)
[2019-03-26] MEDS: Piperacillin/Tazobactam 3.375 GM in Sodium Chloride 0.9% 100 ML IVPB SCH ×2 (00:59→06:30)
[2019-03-26] MEDS: Levothyroxine 175 MCG TAB PO SCH (06:30)
[2019-03-26] MEDS: medroxyPROGESTERone Acetate 2.5 MG TAB PO SCH (08:31)
[2019-03-26] MEDS: Escitalopram Oxalate 10 mg Tablet PO SCH (08:32)
[2019-03-26] MEDS: Bupropion 150 MG XL TAB PO SCH (08:32)
[2019-03-26] MEDS: Saccharomyces boulardii 250 MG CAP PO SCH (08:32)
[2019-03-26] MEDS: Estradiol 1 MG TAB PO SCH (08:33)
[2019-03-26] MEDS ORDERED: Fluconazole In NaCl,Iso-Osm 200 MG in Premix Bag 1 BAG IVPB SCH (09:00)
[2019-03-26 11:20] VITALS: BP 142/71; TEMP 98.2
--- NOTE | 2019-03-29 10:28 | DIS ---
DATE OF ADMISSION: 03/25/2019 DATE OF DISCHARGE: 03/26/2019 ADMISSION DIAGNOSES: Nausea and vomiting. DISCHARGE DIAGNOSES: Nausea and vomiting with inability to care for self at home. OPERATION/PROCEDURES PERFORMED: None. ADMISSION HISTORY: The patient is a 68-year-old white female. She had undergone a laparotomy with Emmanuel's procedure for perforated diverticulitis on March 17. She recovered very nicely from that surgery and was stable for discharge, tolerating her diet and with good colostomy function on March 22. Her family was apparently concerned as she lives at home by herself. She had a couple of episodes of vomiting and her family immediately brought her back to the hospital. Examination in the emergency room revealed no evidence of obstruction or ileus. Her laboratory evaluation was unremarkable except that she did have a leukocytosis with a white blood cell count of 26. Her white blood cell count had only dropped down to 21 prior to her hospitalization, so this really was not much higher. Nonetheless, she was admitted to the hospital and [facility] facility consultation was requested. She was continued on intravenous Zosyn, even though she never really exhibited any infectious signs. During this hospitalization, she has not vomited any further and has been tolerating her entire diet. She is afebrile and her vital signs have been within normal limits. Her abdomen has been benign with no pain and she has not been taking any pain medication. She did have some mucoid appearing drainage from her abdominal wound and yesterday I opened up 3 areas, none of which had any significant volume of purulence. These were each packed with peroxide moistened gauze. Cultures of this area did reveal Perri and she has been started on Diflucan. She is felt to be stable for discharge to a [facility] facility at this point. She has been discharged to the [facility]. I have requested wound care of the 3 open areas of her of her abdominal wound to be packed each day. I have given her discharge prescription for Diflucan to take 1 pill per day for the next week. She should not really require any further antibiotics to cover her intraabdominal infection as she has had a full 9 days of intravenous antibiotics and has been afebrile this entire time. She has been instructed on colostomy care as well. I would like to see her back in a week to reassess her abdominal wound and consider staple removal. Job ID: [id number]
== END 2019-03-26 14:52 | DRG 357 ==
LOC: ERS 07:33 → ERHOLD 11:24 → SURG B 15:14 → OBSVTOIN 03-25 14:09
PROVIDERS: ADMIT Specialist; ATTEND Specialist
PROC: 0WJF0ZZ Inspection of Abdominal Wall, Open Approach (ICD-10-PCS; principal; 2019-03-25)
DX: R11.10 Vomiting, unspecified (principal); J98.11 Atelectasis; D72.829 Elevated white blood cell count, unspecified; Z93.3 Colostomy status
CPT/HCPCS: 36415; 74177; 80053; 83605; 83690; 85025; 87040; 87070; 87205; 96374; 96375; C9113; J1450; J2270; J2405; J2543; J3490; Q0162; Q9967

== ENCOUNTER 2019-06-29 06:50 | Inpatient (IN) | payer MEDICARE, OTHER ==
[2019-06-29 08:01] LABS: #Basophils 0.1 thou/uL (0.0-0.2); #Eosinphils 0.1 thou/uL (0.0-0.7); #Lymphocytes 2.9 thou/uL (1.20-3.40); #Monocytes 0.8 thou/uL (0.11-0.59); #Neutrophils 5.7 thou/uL (1.40-6.50); %Basophils 0.8 % (0.0-1.0); %Eosinophils 0.9 % (0.0-10.0); %Lymphocytes 29.9 % (21.0-51.0); %Monocytes 8.5 % (0.0-10.0); %Neutrophils 59.9 % (42.0-75.0); Hemoglobin 13.6 g/dL (12.0-16.0); Mean Corpuscular HGB CONC 32.5 g/dL (32.0-36.0); Mean Corpuscular Hemoglobin 29.1 pg (27.0-31.0); Mean Corpuscular Volume 89.6 fL (78.0-98.0); Mean Platelet Volume 9.2 fL (7.4-10.4); Platelet Count 275 thou/uL (130-400); RBC Distribution Width 13.4 % (11.5-14.5); Red Blood Cell (RBC) Count 4.67 mill/uL (4.20-5.40); White Blood Cell (WBC) Count 9.6 thou/uL (4.8-10.8)
[2019-06-29] MEDS ORDERED: Sodium Chloride 0.9% 100 ML ONE (08:03)
[2019-06-29] MEDS ORDERED: cefOXitin 2 GM VIAL ONE ×2 (08:03→14:27)
[2019-06-29] MEDS ORDERED: Ketorolac Tromethamine 30 MG/ML VIAL ONE ×3 (08:04→17:04)
[2019-06-29 08:19] LABS: Anion Gap 17 mmol/L (10-20); BUN (Urea Nitrogen) 11 mg/dL (9.8-20.1); Calc. Creatinine Clearance 72 mL/min (70-130); Calcium 9.6 mg/dL (7.8-10.44); Carbon Dioxide 24 mmol/L (23-31); Chloride 104 mmol/L (98-107); Estimated GFR-MDRD 70; Glucose 108 mg/dL (80-115); Sodium 141 mmol/L (136-145)
[2019-06-29] MEDS ORDERED: Midazolam HCl 2 mg/2 ml Vial ONE ×2 (08:28→11:43)
[2019-06-29] MEDS ORDERED: Fentanyl 100 MCG/2 ML VIAL ONE ×4 (08:28→17:37)
[2019-06-29] MEDS ORDERED: Bupivacaine/Epinephrine 0.25% 30 ML VIAL ONE (11:32)
[2019-06-29] MEDS ORDERED: Lidocaine 1% w/Epinephrine 1:100K 20 ML VIAL ONE (11:38)
[2019-06-29] MEDS ORDERED: Bupivacaine HCl 0.5%/Epinephrine 1:200,000/PF 30 ml Vial ONE (13:24)
[2019-06-29] MEDS ORDERED: Dexamethasone 20 MG/5 ML VIAL ONE (14:14)
[2019-06-29] MEDS ORDERED: Rocuronium Bromide 10 MG/ML (10ML VIAL) ONE (14:14)
[2019-06-29] MEDS ORDERED: Ondansetron PF 4 MG/2 ML Vial ONE (14:14)
[2019-06-29] MEDS ORDERED: PROPOFOL 200 MG/20 ML VIAL ONE (14:14)
[2019-06-29] MEDS ORDERED: ePHEDrine 50 MG/ML VIAL ONE (14:14)
[2019-06-29] MEDS ORDERED: Promethazine HCl 25 MG/ML VIAL IM PRN ×2 (16:18→17:07)
[2019-06-29] MEDS ORDERED: Promethazine HCl 25 MG/ML VIAL SLOW IVP PRN (16:18)
[2019-06-29] MEDS ORDERED: Ondansetron HCl/PF 4 MG/2 ML Vial IVP PRN (16:18)
[2019-06-29] MEDS ORDERED: Morphine 4 MG/ML VIAL SLOW IVP PRN (17:07)
[2019-06-29] MEDS ORDERED: Morphine 2 MG/ML SYRINGE SLOW IVP PRN (17:07)
[2019-06-29] MEDS ORDERED: hydrALAZINE 20 MG/ML VIAL SLOW IVP PRN (17:07)
[2019-06-29] MEDS ORDERED: Ondansetron PF 4 MG/2 ML Vial IVP PRN (17:07)
[2019-06-29] MEDS: Ketorolac Tromethamine 30 MG/ML VIAL IVP SCH (18:10)
[2019-06-29] MEDS: Acetaminophen 1,000 MG in Premix Bag 1 BAG IVPB SCH (18:33)
[2019-06-29] MEDS: D5 1/2 NS w/20 mEq KCL 1,000 ML IV SCH (18:33)
[2019-06-29] MEDS: Famotidine/PF 20 mg/2ml Vial SLOW IVP SCH (21:11)
[2019-06-29] MEDS: Enoxaparin Sodium 40 MG/0.4 ML SYRINGE SC SCH (21:12)
[2019-06-29] MEDS: Famotidine 20 MG TAB PO SCH (21:13)
[2019-06-29] MEDS: cefOXitin 2 GM in Sodium Chloride 0.9% 100 ML IVPB SCH (21:16)
[2019-06-30] MEDS: Ketorolac Tromethamine 30 MG/ML VIAL IVP SCH ×4 (00:24→18:28)
[2019-06-30] MEDS: Acetaminophen 1,000 MG in Premix Bag 1 BAG IVPB SCH ×3 (00:25→16:28)
[2019-06-30] MEDS: D5 1/2 NS w/20 mEq KCL 1,000 ML IV SCH ×5 (03:20→22:10)
[2019-06-30 05:06] LABS: #Lymphocytes 1.4 thou/uL (1.20-3.40); #Monocytes 1.4 thou/uL (0.11-0.59); #Neutrophils 14.5 thou/uL (1.40-6.50); %Eosinophils 0.1 % (0.0-10.0); %Lymphocytes 7.9 % (21.0-51.0); %Monocytes 8.3 % (0.0-10.0); %Neutrophils 83.8 % (42.0-75.0); Hemoglobin 11.9 g/dL (12.0-16.0); Mean Corpuscular HGB CONC 32.7 g/dL (32.0-36.0); Mean Corpuscular Volume 91.9 fL (78.0-98.0); Platelet Count 224 thou/uL (130-400); RBC Distribution Width 13.1 % (11.5-14.5); Red Blood Cell (RBC) Count 3.98 mill/uL (4.20-5.40); White Blood Cell (WBC) Count 17.3 thou/uL (4.8-10.8)
[2019-06-30 05:19] LABS: Anion Gap 13 mmol/L (10-20); BUN (Urea Nitrogen) 9 mg/dL (9.8-20.1); Calc. Creatinine Clearance 81 mL/min (70-130); Calcium 8.4 mg/dL (7.8-10.44); Carbon Dioxide 23 mmol/L (23-31); Chloride 104 mmol/L (98-107); Estimated GFR-MDRD 76; Glucose 166 mg/dL (80-115); Potassium 4.3 mmol/L (3.5-5.1); Sodium 136 mmol/L (136-145)
--- NOTE | 2019-06-30 05:50 | OP ---
DATE OF PROCEDURE: 06/29/2019 PREOPERATIVE DIAGNOSIS: Undesired colostomy. POSTOPERATIVE DIAGNOSIS: Undesired colostomy. OPERATION PERFORMED: Laparoscopic assisted colostomy reversal with short-segment resection. ANESTHESIA: General endotracheal. INDICATION FOR PROCEDURE: The patient is a 68-year-old white female. Several months previously, she underwent a Emmanuel's procedure for perforated diverticulitis. She returns at this time for a colostomy reversal. DESCRIPTION OF THE PROCEDURE: Informed consent was obtained. The patient was taken to the operating room where general endotracheal anesthesia was obtained with patient in the supine position. Abdomen was prepped with ChloraPrep and draped in sterile fashion. Local anesthetic was infiltrated using 0.25% Marcaine with epinephrine and a 5 mm right lateral abdominal incision was created through which a Veress needle was passed into the peritoneal cavity. Pneumoperitoneum was established using carbon dioxide up to pressure of 15 mmHg. A 5 mm trocar port was passed through the same incision. Laparoscopic camera was passed through this port. Under direct vision, two additional 5 mm ports were placed, one in the right lower quadrant and one in the epigastrium. Utilizing these ports, I began to mobilize the fairly dense adhesions to the anterior abdominal wall. Most of these adhesions were covering almost the entire of the abdominal wall, were fairly flimsy and I was able to easily mobilize bluntly. After the initial omental adhesions to the anterior abdominal wall were mobilized, the remainder of the mobilization was challenging and time consuming. There was small bowel adherent within the pelvis that was difficult to mobilize. Even more difficult to mobilize was the omentum off the underlying bowel. It was challenging to mobilize this out of the pelvis, off the underlying intestine, especially out of the left lower quadrant and colostomy. With difficulty, I was able to eventually fully mobilize this and reflect it superiorly. As I cleared the pelvis, I was able to identify the Prolene sutures that had been placed at the time of the initial surgery, marking the rectum. I mobilized the rectum on either side in order to elevate it appropriately out of the pelvis. I then turned my attention externally. I made an elliptical incision around the colostomy site and mobilized this down into the abdomen. I then inverted the skin at the colostomy opening, prepped this with Betadine and dropped it down to the abdomen. With this in the abdomen, I was able to better discern what needed to be mobilized in order to gain the laxity for anastomosis. There were fairly dense adhesions laterally. These were taken down using a combination of blunt and sharp dissection. I then mobilized the left colon up to the splenic flexure. Once the left colon was fully mobilized, I ensured that we would reach down to rectal stump staple line. I then delivered externally. I used segregated instruments to create an enterotomy near the suture closure of the colostomy site. I then sized the colostomy and chose a 29 mm EEA stapler. The anvil was passed through the enterotomy several centimeters proximally and brought out antimesenteric. The colotomy and sutured end of the colostomy were then resected with a fire of the PREETHI stapler and passed off the field. The anvil was prepped with Betadine and secured with a 2-0 Prolene pursestring suture. It was then dropped into the abdominal cavity. From below, EEA sizers were able to be advanced up to the staple line. When the EEA stapler was advanced, however, a perforation was noted to have occurred on the anterior aspect of the rectum just proximal to the staple line. The EEA stapler was withdrawn and the rectosigmoid stump was dissected. I resected an additional couple of inches of the rectosigmoid stump using the [place] stapler and passed this off the field. I then reinserted the EEA stapler and advanced the spike. As this was done, there was noted to be a large retained ball of stool near the staple line, but this did not seem to impact the repair and closure. The spike was secured to the anvil internally and the 2 segments were approximated and the stapler was fired to create the anastomosis. The donuts were inspected externally and found to be intact. The anastomosis was then inspected to make sure it was airtight by insufflating the air while under water and there was no evidence of air leak. The pelvis and abdomen in general were thoroughly irrigated and all irrigant was aspirated. A #19 round fluted drain was obtained and placed within the pelvis and brought out through the 5 mm right abdominal incision were secured with a 3-0 nylon suture. The fascial defect of the 12 mm port in the right lower quadrant was closed with 0 Vicryl suture using a GraNee needle. All ports and instruments were removed under direct vision. Pneumoperitoneum was carefully evacuated. All laparoscopic instrumentation was passed off the field. The abdominal wall was cleansed. Gowns and gloves were changed. The fascia at the colostomy site was then closed in 2 layers using running suture of #1 PDS. The wound was then copiously irrigated with over a liter of irrigant. The wound was then closed in layers with 3-0 Vicryl and skin amanda. The other port sites were closed with 4-0 Monocryl subcuticular suture and Dermabond was placed externally. There were no complications during her surgery, however, it was very challenging to perform. She was taken to recovery room in stable condition. Job ID: [id number]
[2019-06-30] MEDS: cefOXitin 2 GM in Sodium Chloride 0.9% 100 ML IVPB SCH (06:11)
[2019-06-30] MEDS: Famotidine 20 MG TAB PO SCH ×2 (08:23→22:00)
[2019-06-30] MEDS: Famotidine/PF 20 mg/2ml Vial SLOW IVP SCH ×2 (08:24→22:00)
--- NOTE | 2019-06-30 09:43 | PDOC.GSPN ---
Surgery Progress Note: Subj - Subjective Patient reports: no new complaints, had a bowel movement, feels better, positive flatus, pain well controlled, tolerating liquids well, voiding w/o difficulty Narrative: Ms. Barraza is a 68 y/o female post operative day #1 from a colostomy reversal with short segment resection. She initially had the colostomy several months ago from Emmanuel's procedure for perforated diverticulitis. Today she says she is feeling good. Her pain is 'mild' and well controlled with tylenol. She was on 2 L/min O2 via nasal canula overnight (removed at 4 am), but is now breathing room air and did not experience any episodes of shortness of breath or chest pain even with walking. Her lowest overnight O2 sat was 94%. She has not had nausea or vomiting and has tolerated a meal of clear liquids. She has a right lateral abdominal YOSSI drain that drained 40 mL of serosangiunous fluid. She reports having her first post op bowel movement this morning and it showed bright red stool. She does not have a history of hemorrhoids, anal fissures or anorectal disease. Her hensley catheter was removed this morning and she has no trouble voiding and had a urine output of 900 ml overnight. She is ambulating and using her incentive spirometry device. Surgery Progress Note: Obj - Vital signs Vital signs: Vital Signs - Most Recent Temp Pulse Resp BP Pulse Ox 98.4 F 65 16 113/60 97 06/30/19 07:04 06/30/19 07:04 06/30/19 07:04 06/30/19 07:04 06/30/19 07:04 - Physical Exam General: no distress ENT: normal mucosa, other (moist mucous membranes.) Cardiovascular: regular rate and rhythm, no murmur Respiratory: clear to auscultation, normal respiratory effort, breath sounds present Abdomen: soft, positive bowel sounds, other (tender at incision sites. Normoactive bowel sounds.) Wound: dressing clean,dry,intact, healing well, other (No erythema or edema at any incision site. [place] present on previous colostomy site in LLQ. YOSSI drain on right lateral abdomen.) Surgery Progress Note: Results - Labs Result Diagrams: 06/30/19 03:59 06/30/19 03:59 Lab results: Laboratory Results - last 24 hr 06/30/19 06/30/19 03:59 03:59 WBC 17.3 H RBC 3.98 L Hgb 11.9 L Hct 36.5 MCV 91.9 MCH 30.0 MCHC 32.7 RDW 13.1 Plt Count 224 MPV 10.0 Neutrophils % 83.8 H Lymphocytes % 7.9 L Monocytes % 8.3 Eosinophils % 0.1 Basophils % 0.0 Neutrophils # 14.5 H Lymphocytes # 1.4 Monocytes # 1.4 H Eosinophils # 0.0 Basophils # 0.0 Sodium 136 Potassium 4.3 Chloride 104 Carbon Dioxide 23 Anion Gap 13 BUN 9 L Creatinine 0.75 Estimated GFR (MDRD) 76 Glucose 166 H Calcium 8.4 Surgery Progress Note: A/P - Plan Plan: Ms. Barraza is 68 y/o female post operative day #1 from colostomy reversal with short segement resection. She is recovering well today and tolerating her clear liquid diet. Her only concern is the presence of a small amount of bright red blood in her stool this morning. She does not have a history of anorectal pathology and this finding is likely mild post operative bleeding that will resolve. Her YOSSI drain also showed sanguineous fluid that will also likely resolve with time. Her hemoglobin, BP and vitals are not concerning for significant blood loss. She has a leukocytosis with neutropohilia likely secondary to inflammation from her surgery. Will monitor with daily CBC for return to normal limits. Plan for her is to advance her to full liquids today since she is tolerating clear liquids and continue pain meds prn. She is not having any SOB/CP and there is no need for her to be on oxygen supplementation via nasal canula. She has been encouraged to continue ambulating and incentive spirometry.
[2019-06-30] MEDS: Enoxaparin Sodium 40 MG/0.4 ML SYRINGE SC SCH (22:00)
[2019-06-30] MEDS: HYDROcodone/Acetaminophen 7.5/325 mg Tablet PO PRN (22:15)
[2019-07-01] MEDS: Ketorolac Tromethamine 30 MG/ML VIAL IVP SCH ×5 (00:53→23:50)
[2019-07-01 05:52] LABS: #Basophils 0.1 thou/uL (0.0-0.2); #Eosinphils 0.1 thou/uL (0.0-0.7); #Lymphocytes 2.5 thou/uL (1.20-3.40); #Monocytes 1.3 thou/uL (0.11-0.59); #Neutrophils 12.8 thou/uL (1.40-6.50); %Basophils 0.5 % (0.0-1.0); %Eosinophils 0.5 % (0.0-10.0); %Lymphocytes 14.7 % (21.0-51.0); %Monocytes 7.9 % (0.0-10.0); %Neutrophils 76.4 % (42.0-75.0); Hemoglobin 11.3 g/dL (12.0-16.0); Mean Corpuscular HGB CONC 31.6 g/dL (32.0-36.0); Mean Corpuscular Hemoglobin 29.6 pg (27.0-31.0); Mean Corpuscular Volume 93.6 fL (78.0-98.0); Mean Platelet Volume 9.8 fL (7.4-10.4); Platelet Count 175 thou/uL (130-400); RBC Distribution Width 13.4 % (11.5-14.5); Red Blood Cell (RBC) Count 3.81 mill/uL (4.20-5.40); White Blood Cell (WBC) Count 16.8 thou/uL (4.8-10.8)
--- NOTE | 2019-07-01 06:48 | PDOC.GSPN ---
Surgery Progress Note: Subj - Subjective Narrative: Ms. Barraza is a 68 y/o female s/p day 2 from a colostomy reversal with short segment resection. The colostomy was originally placed using the Emmanuel procedure for perforated diverticulitis. Today she says that she is "doing well and pretty much ready to go home". Her current pain is described as an achy 3-4/10 constant/mild pain, although she had breakthrough pain of 10/ 10 yesterday evening that was controlled with [place], morphine, toradol. She continues on room air and denies any SOB or chest pain evening when walking. There is a YOSSI drain on the left lateral abdomen that drained 10mL of serosanguinous fluid overnight. She states that her appetite is improving and is tolerating the clear liquid diet, preferring chicken broth. She is voiding well stating she urinated several times overnight without difficulty. She continues to have bowel movements with bright red blood and states the consistency is improving, currently "semi-soft". She denies any lightheadedness , dizziness, syncope, history of hemorrhoids or anal fistulas. Pt has been walking laps around the floor and is consistently using her incentive spirometer. Surgery Progress Note: Obj - Vital signs Vital signs: Vital Signs - Most Recent Temp Pulse Resp BP Pulse Ox 98.3 F 73 16 105/60 95 07/01/19 04:05 07/01/19 04:05 07/01/19 04:05 07/01/19 04:05 07/01/19 04:05 - Physical Exam General: no distress, well developed, well nourished ENT: other (moist mucus membranes) Cardiovascular: regular rate and rhythm, no murmur Respiratory: clear to auscultation, normal respiratory effort Abdomen: positive bowel sounds, other (soft, normoactive bowel sounds, tender at incision sites primarily LLQ/RLQ.) Wound: other ([place] in LLQ from previous colostomy site and YOSSI drain on right lateral abdomen. Dressing is clean, dry, intact, wound healing well without erythema, edema, or warmth.) Surgery Progress Note: Results - Labs Result Diagrams: 07/01/19 05:33 06/30/19 03:59 Lab results: Laboratory Results - last 24 hr 07/01/19 05:33 WBC 16.8 H RBC 3.81 L Hgb 11.3 L Hct 35.7 L MCV 93.6 MCH 29.6 MCHC 31.6 L RDW 13.4 Plt Count 175 MPV 9.8 Neutrophils % 76.4 H Lymphocytes % 14.7 L Monocytes % 7.9 Eosinophils % 0.5 Basophils % 0.5 Neutrophils # 12.8 H Lymphocytes # 2.5 Monocytes # 1.3 H Eosinophils # 0.1 Basophils # 0.1 Surgery Progress Note: A/P - Plan Plan: Ms. Barraza is a 68 y/o female POD #2 from colostomy reversal with short segment resection. Today she is recovering well and mild pain is managed effectively with current pain medication. Her appetite is improving and is tolerating clear liquids well. She is ambulating without difficulty and consistently uses her incentive spirometer without complains of SOB or chest pain. She still describes a small amount of bright red blood in her stool, but states that she feels the consistency is increasing to "semi-soft". Her hemoglobin of 11.3, BP, HR, and clinical condition do not suggest significant blood loss at this time. She continues to have leukocytosis with neutrophilia but numbers are improving compared to yesterday. We will continue to monitor with a CBC this morning. Continue to advance diet as patient tolerates and control pain with current medication. I encouraged the patient to continue ambulating and use of her spirometer. Possible discharge today pending CBC, pain control, and tolerating diet.
[2019-07-01] MEDS: Famotidine 20 MG TAB PO SCH ×2 (08:23→20:21)
[2019-07-01] MEDS: Famotidine/PF 20 mg/2ml Vial SLOW IVP SCH ×2 (08:25→20:23)
[2019-07-01] MEDS: D5 1/2 NS w/20 mEq KCL 1,000 ML IV SCH ×2 (10:48→20:19)
[2019-07-01] MEDS: HYDROcodone/Acetaminophen 7.5/325 mg Tablet PO PRN ×2 (10:52→15:56)
[2019-07-01] MEDS ORDERED: metFORMIN 500 MG TAB PO SCH (17:00)
[2019-07-01] MEDS: Enoxaparin Sodium 40 MG/0.4 ML SYRINGE SC SCH (20:22)
[2019-07-01] MEDS ORDERED: Simvastatin 5 MG TAB PO SCH (21:00)
[2019-07-01] MEDS ORDERED: Losartan 25 MG TAB PO SCH (21:00)
[2019-07-02] MEDS: HYDROcodone/Acetaminophen 7.5/325 mg Tablet PO PRN (04:36)
[2019-07-02] MEDS: Ketorolac Tromethamine 30 MG/ML VIAL IVP SCH ×2 (05:03→12:28)
[2019-07-02 05:44] LABS: #Basophils 0.1 thou/uL (0.0-0.2); #Eosinphils 0.3 thou/uL (0.0-0.7); #Lymphocytes 2.7 thou/uL (1.20-3.40); #Monocytes 0.9 thou/uL (0.11-0.59); #Neutrophils 9.1 thou/uL (1.40-6.50); %Basophils 0.5 % (0.0-1.0); %Eosinophils 2.3 % (0.0-10.0); %Lymphocytes 20.5 % (21.0-51.0); %Monocytes 6.9 % (0.0-10.0); %Neutrophils 69.8 % (42.0-75.0); Hemoglobin 10.7 g/dL (12.0-16.0); Mean Corpuscular Volume 93.7 fL (78.0-98.0); Mean Platelet Volume 10.1 fL (7.4-10.4); Platelet Count 182 thou/uL (130-400); RBC Distribution Width 13.3 % (11.5-14.5); Red Blood Cell (RBC) Count 3.57 mill/uL (4.20-5.40); White Blood Cell (WBC) Count 13.1 thou/uL (4.8-10.8)
[2019-07-02] MEDS ORDERED: Levothyroxine 175 MCG TAB PO SCH (06:00)
--- NOTE | 2019-07-02 07:51 | PDOC.GSPN ---
Surgery Progress Note: Subj - Subjective Narrative: Ms. Barraza is a 68 year old female who is day 3 s/p laparoscopic assisted colostomy reversal with short segment resection. She states that her pain is 1/ 10 and achy in quality. She began passing flatus yesterday afternoon and no longer has blood in her stool. She states that her stool quality is mucus-like. She denies any nausea or vomiting. She is voiding without difficulty, ambulating regularly and using her incentive spirometer as instructed. She reports an appetite for progressing her diet beyond liquids. Surgery Progress Note: Obj - Vital signs Vital signs: Vital Signs - Most Recent Temp Pulse Resp BP Pulse Ox 98.2 F 72 18 147/70 H 96 07/02/19 03:47 07/02/19 03:47 07/02/19 03:47 07/02/19 03:47 07/02/19 03:47 - Physical Exam General: no distress, no pain Cardiovascular: regular rate and rhythm, no murmur Respiratory: clear to auscultation Abdomen: soft, non tender, nondistended Wound: dressing clean,dry,intact, healing well, other (right YOSSI drain intact with 10 mL output of serosanguinous fluid yesterday) Surgery Progress Note: Results - Labs Result Diagrams: 07/02/19 04:21 06/30/19 03:59 Lab results: WBC trending down and left shift resolved. Hgb and Hct down decreased slightly from yesterday. Labs otherwise normal. Surgery Progress Note: A/P - Plan Plan: Ms. Barraza is a 68 year old female who is day 3 s/p laparoscopic assisted colostomy reversal with short segment resection who is recovering well. She shows no signs of post-operative complications. Plan to switch her pain medication to oral toradol and tylenol. Will continue to slowly advance her diet as tolerated. Will encourage patient to continue ambulating frequently. Potentially plan to discharge patient today to follow up in 2 weeks in clinic.
[2019-07-02] MEDS: Famotidine 20 MG TAB PO SCH (08:52)
[2019-07-02] MEDS ORDERED: Bupropion 150 MG XL TAB PO SCH (09:00)
[2019-07-02] MEDS ORDERED: Escitalopram Oxalate 10 mg Tablet PO SCH (09:00)
[2019-07-02] MEDS: Famotidine/PF 20 mg/2ml Vial SLOW IVP SCH (10:16)
[2019-07-02 12:05] VITALS: TEMP 98.2
[2019-07-02] MEDS: D5 1/2 NS w/20 mEq KCL 1,000 ML IV SCH (12:37)
[2019-07-02 12:57] VITALS: BMI 25.9
[2019-07-02 14:31] VITALS: BP 128/55
== END 2019-07-02 16:00 | disposition home or self-care (01) | DRG 331 ==
LOC: SURG A 06:50
PROVIDERS: ADMIT Specialist; ATTEND Specialist
PROC: 0DBE4ZZ Excision of Large Intestine, Percutaneous Endoscopic Approach (ICD-10-PCS; principal; 2019-06-29)
PROC: 0DNU4ZZ Release Omentum, Percutaneous Endoscopic Approach (ICD-10-PCS; 2019-06-29)
DX: K57.20 Diverticulitis of large intestine with perforation and abscess without bleeding (principal); K66.0 Peritoneal adhesions (postprocedural) (postinfection); D72.0 Genetic anomalies of leukocytes; Z88.2 Allergy status to sulfonamides; Z90.49 Acquired absence of other specified parts of digestive tract; Z93.3 Colostomy status
CPT/HCPCS: 36415; 36416; 80048; 85025; 93005; 93010; J0131; J0670; J0694; J1100; J1650; J1885; J2001; J2250; J2270; J2405; J2704; J3010; J3490; S0028